=== PATIENT | female | born 1955 | race Caucasian/White ===

== ENCOUNTER 2020-05-21 10:21 | Outpatient (REF) | payer OTHER, SELFPAY ==
--- NOTE | 2020-05-21 10:25 | MM_ITS ---
EXAMINATION: MM SCREENING DIGITAL BREAST TOMOSYNTHESIS, BILATERAL CLINICAL INFORMATION: Screening. Asymptomatic. Prior history benign right breast excisional biopsy 2013 ([facility]). The lifetime risk of breast cancer based on the Tyrer-Cuzick Model is 5%. COMPARISON: Mammography: 05/16/2019, 05/10/2018, 03/12/2017 TECHNIQUE: Digital breast tomosynthesis is performed in both the craniocaudal and mediolateral oblique views along with computer-aided detection (CAD). Synthesized 2D images are generated from the tomosynthesis. FINDINGS: There are scattered areas of fibroglandular density (ACR BI-RADS breast composition Category b). Parenchymal pattern is similar to prior exam. There is chronic bilateral nipple retraction. There is no developing density or interval mass or architectural abnormality. Again, there are bilateral benign round and ductal secretory calcifications central and anterior breasts. No significant changes. MM/MM tomosynthesis screening BI IMPRESSION: No significant changes from prior studies. ASSESSMENT: BI-RADS 2: Benign RECOMMENDATION: Routine annual mammography screening. This patient's information was entered into a reminder system with a target due date for their next mammogram.
== END 2020-05-21 10:22 | disposition home or self-care (01) ==
LOC: HO.MAMMO 10:21
PROVIDERS: PCP Pediatrics; Visit Provider Pediatrics
DX: Z12.31 Encounter for screening mammogram for malignant neoplasm of breast (principal)
CPT/HCPCS: 77063; 77067

== ENCOUNTER 2021-06-26 07:49 | Outpatient (REF) | payer MEDICARE, SELFPAY ==
--- NOTE | ~2021-06-26 | MM_ITS ---
EXAMINATION: MM SCREENING DIGITAL BREAST TOMOSYNTHESIS, BILATERAL CLINICAL INFORMATION: Screening. Asymptomatic. Prior benign right excisional biopsy 2012 ([facility]). The lifetime risk of breast cancer based on the Tyrer-Cuzick Model is 4%. COMPARISON: Mammography: 05/21/2020, 05/16/2019, 05/10/2018 TECHNIQUE: Digital breast tomosynthesis is performed in both the craniocaudal and mediolateral oblique views along with computer-aided detection (CAD). Synthesized 2D images are generated from the tomosynthesis. FINDINGS: There are scattered areas of fibroglandular density (ACR BI-RADS breast composition Category b). Parenchymal pattern is similar to prior studies. There is chronic bilateral nipple retraction. Old scarring is again seen upper outer right breast consistent with the outside excisional biopsy. Neither breast shows interval mass or architectural changes or developing density. There are scattered bilateral round and rim and ductal secretory calcifications again noted. No significant changes. MM/MM tomosynthesis screening BI IMPRESSION: No significant changes from prior studies. ASSESSMENT: BI-RADS 2: Benign RECOMMENDATION: Routine annual mammography screening. This patient's information was entered into a reminder system with a target due date for their next mammogram.
== END 2021-06-26 07:50 | disposition home or self-care (01) ==
LOC: HO.MAMMO 07:49
PROVIDERS: PCP Pediatrics; Visit Provider Pediatrics
DX: Z12.31 Encounter for screening mammogram for malignant neoplasm of breast (principal)
CPT/HCPCS: 77063; 77067

== ENCOUNTER 2022-07-02 07:39 | Outpatient (REF) | payer MEDICARE, SELFPAY ==
--- NOTE | ~2022-07-02 | MM_ITS ---
EXAMINATION: MM SCREENING DIGITAL BREAST TOMOSYNTHESIS, BILATERAL CLINICAL INFORMATION: Screening. Asymptomatic. Prior benign right excisional biopsy, 2012 ([facility]). The lifetime risk of breast cancer based on the Tyrer-Cuzick Model is 4%. COMPARISON: Mammography: 06/26/2021, 05/21/2020, 05/16/2019 TECHNIQUE: Digital breast tomosynthesis is performed in both the craniocaudal and mediolateral oblique views along with computer-aided detection (CAD). Synthesized 2D images are generated from the tomosynthesis. Additional right MLO view is provided. FINDINGS: There are scattered areas of fibroglandular density (ACR BI-RADS breast composition Category b). Parenchymal pattern is similar to prior studies and there is no significant mass or developing density or interval architectural abnormality. Chronic scarring right breast is consistent with the outside excisional biopsy. There are some bilateral benign round and ductal secretory calcifications again seen. Mild bilateral nipple retraction is a chronic finding. No significant changes. MM/MM tomosynthesis screening BI IMPRESSION: No significant changes from prior studies. ASSESSMENT: BI-RADS 2: Benign RECOMMENDATION: Routine annual mammography screening. This patient's information was entered into a reminder system with a target due date for their next mammogram.
== END 2022-07-02 07:40 | disposition home or self-care (01) ==
LOC: HO.MAMMO 07:39
PROVIDERS: PCP Family Medicine; Visit Provider Pediatrics
DX: Z12.31 Encounter for screening mammogram for malignant neoplasm of breast (principal)
CPT/HCPCS: 77063; 77067

== ENCOUNTER 2023-07-07 07:25 | Outpatient (REF) | payer MEDICARE, SELFPAY ==
--- NOTE | ~2023-07-07 | MM_ITS ---
EXAMINATION: MM SCREENING DIGITAL BREAST TOMOSYNTHESIS, BILATERAL CLINICAL INFORMATION: Screening. Asymptomatic. COMPARISON: Mammography: This study is compared with prior exams dating back to 2018. TECHNIQUE: Digital breast tomosynthesis is performed in both the craniocaudal and mediolateral oblique views along with computer-aided detection (CAD). Synthesized 2D images are generated from the tomosynthesis. FINDINGS: There are scattered areas of fibroglandular density (ACR BI-RADS breast composition Category b). There are no significant masses, abnormal calcifications, or other abnormalities. There are bilateral, benign secretory calcifications. There are bilateral periareolar architectural changes from prior bilateral benign excisions. MM/MM tomosynthesis screening BI IMPRESSION: No mammographic evidence of malignancy. ASSESSMENT: BI-RADS BI-RADS 2 - Benign Findings RECOMMENDATION: Routine annual mammography screening. 1 year F/U This examination should not preclude the clinical evaluation of a suspicious palpable abnormality. This patient's information was entered into a reminder system with a target due date for their next mammogram.
== END 2023-07-07 07:26 | disposition home or self-care (01) ==
LOC: HO.MAMMO 07:25
PROVIDERS: PCP Family Medicine; Visit Provider Family Medicine
DX: Z12.31 Encounter for screening mammogram for malignant neoplasm of breast (principal)
CPT/HCPCS: 77063; 77067

== ENCOUNTER → 2023-07-07 07:45 | Outpatient (BNV) | payer MEDICARE, SELFPAY | PROVIDERS: PCP Family Medicine; Visit Provider Radiology Diagnostic Radiology | DX: Z12.31 Encounter for screening mammogram for malignant neoplasm of breast (principal) | CPT/HCPCS: 77063; 77067 ==

== ENCOUNTER 2023-11-17 14:09 | Outpatient (AMB) | payer MEDICARE, SELFPAY ==
--- NOTE | 2023-11-17 14:16 | A.OFFPC_ITS ---
Vital Signs 11/17/23 14:20 Height 5 ft 3 in Weight 146 lb 2 oz BMI 25.9 BP 100/62 Blood Pressure Location Rt brachial Position Sitting Respiration 15 Pulse 75 Pulse Source Pulse Oximeter Temp 97 F Temp Source Temporal Artery Scan Pulse Oximetry (%) 96 Oxygen Delivery Method Room Air Intake Visit Reasons: Establish Care new to practice Intake Note: Patient states that shes been experiencing fatigue and has been more tired than usual. 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 Accompanied by: Self / Same As Patient Allergies No Known Allergies Allergy (Verified 11/17/23 14:23) Tobacco use date assessed: 11/17/23 Fall risk assessment: 1 Fall in past year Last assessed Fall Risk: 11/17/23 Dental Screening Dental Screen Date: 11/17/23 Did you have a dental visit in the last 12 months?: Yes Did you have a dental problem in the last 6 months where you did not have access to dental care?: No Was dental information given to patient?: Patient has dentist HPI HPI Comments History of Present Illness Details The patient is a 68 year old female with a past medical history of hyperlipidemia, depression presenting to establish care. Transfer from [facility] BH: Has been on paxil for years. Finds herself more depressed more fatigued. Lack of motivation. no fevers, night sweats CV: on lipitor ROS CONSTITUTIONAL: Denies weight loss, fever and chills. HEENT: Denies changes in vision and hearing. RESPIRATORY: Denies SOB and cough. CV: Denies palpitations and CP GI: Denies abdominal pain, nausea, vomiting and diarrhea. : Denies dysuria and urinary frequency. MSK: Denies new myalgia and joint pain. SKIN: Denies rash and pruritus. NEUROLOGICAL: Denies headache PSYCHIATRIC: see HPI PHYSICAL EXAM: GENERAL: Alert and oriented x 3. NAD EYES: EOMI. Anicteric. HENT: Moist mucous membranes. No scleral icterus. No cervical lymphadenopathy. LUNGS: Clear to auscultation bilaterally. CARDIOVASCULAR: Regular rate and rhythm. No murmur. No JVD. ABDOMEN: Soft, non-tender +bs EXTREMITIES: No edema. Non-tender. SKIN: No rashes or lesions. Warm. NEUROLOGIC: No focal neurological deficits. CN II-XII grossly intact PSYCHIATRIC: Cooperative. Appropriate mood and affect [facility] Medical History (Updated 11/22/23 @ 10:47 by Nanci Kuo MD) Anxiety and depression Arthritis High cholesterol Surgical History (Updated 11/17/23 @ 14:28 by TERESA Duran) History of Matos colposuspension Status post excision of acoustic neuroma Family History (Updated 11/17/23 @ 14:31 by TERESA Duran) Father Cardiovascular disease Maternal Grandmother Diabetes Family/Other No problems noted. Social History Housing: House Patient Tobacco Use Status: Former Tobacco user e-Cigarette/Vaping Use: Never Used service: No Current occupational status: retired Cognitive needs: No Hearing needs: Yes Vision needs: No Questionnaire PHQ-9 Over the last 2 weeks, how often have you been bothered by any of the following problems? 1. Little interest or pleasure in doing things: nearly every day 2. Feeling down, depressed, or hopeless: several days 3. Trouble falling or staying asleep, or sleeping too much: several days 4. Feeling tired or having little energy: several days 5. Poor appetite or overeating: not at all 6. Feeling bad about yourself - or that you are a failure or have let yourself or your family down: more than half the days 7. Trouble concentrating on things, such as reading the newspaper or watching television: not at all 8. Moving or speaking so slowly that other people could have noticed. Or the opposite - being so fidgety or restless that you have been moving around a lot more than usual: not at all 9. Thoughts that you would be better off or of hurting yourself in some way: not at all Total score: 8 Depression Screening Interpretation: Positive Depression Screening Done: Yes 37151 - PHQ-9 Billing: Yes Source: Developed by Drs. Raheel Chang, Myriam Washington, Julian Traore and colleagues, with an educational alaina from [employer]. Thrive Questionnaire Date Thrive assessed: 11/17/23 What is your living situation today?: I have a steady place to live Within the past 12 months, did the food you bought not last and you didn't have the money to get more?: Never true Do you have trouble paying for medicines?: No Do you have trouble getting transportation to medical appointments?: No Do you have trouble paying your heating and electricity bill?: No Do you have trouble taking care of your child, family member or friend?: No Do you have trouble with day-to-day activities such as bathing, preparing meals, shopping, managing finances, etc.?: No Are you currently unemployed and looking for a job?: No Are you interested in more education?: No Please select the resources that you would like help with: None THRIVE Score: 0 REE-7 AMB Questionnaire REE-7 Date REE - 7 assessed: 11/17/23 Feeling nervous, anxious, or on edge: 0 = Not at all Not being able to stop or control worryin = Not at all Worrying too much about different things: 1 = Several days Trouble relaxin = Not at all Being so restless that it is hard to sit still: 0 = Not at all Becoming easily annoyed or irritable: 0 = Not at all Feeling afraid as if something awful might happen: 0 = Not at all Total REE-7 score (0-4 normal; 5-9 mild; 10-14 moderate; 15-21 severe): 1 Source: Developed by Drs. Raheel Chang, Myriam Washington, Julian Traore and colleagues, with an educational alaina from [employer]. REE-7 Assessment Billing REE-7 Assessment Tool: REE-7 Assessment 86071 Physical exam (Primary Care) Vital Signs: Last Vital Signs Temp 97 F 11/17/23 14:20 Pulse 75 11/17/23 14:20 Resp 15 11/17/23 14:20 BP 100/62 11/17/23 14:20 Pulse Ox 96 11/17/23 14:20 Oxygen Delivery Method Room Air 11/17/23 14:20 BMI result Body Mass Index 25.9 Tobacco/Smoking Status: Tobacco use Status Tobacco use date assessed 11/17/23 11/17/23 14:32 Patient Tobacco Use Status Former Tobacco user 11/17/23 14:32 e-Cigarette/Vaping Use Never Used 11/17/23 14:32 PHQ-9: PHQ-9 Score PHQ-9: Total score 8 11/22/23 10:47 Depression Screening Interpretation: Positive Thrive Assessment: Date of Thrive Assessment Date Thrive assessed 11/17/23 11/17/23 14:41 Assessment and Plan Assessment & Plan (1) High cholesterol: Code(s): E78.00 - Pure hypercholesterolemia, unspecified Plan: continue statin therapy (2) Lack of motivation: Code(s): Z91.89 - Other specified personal risk factors, not elsewhere classified Plan: labs ordered (3) MDD (major depressive disorder), recurrent, in partial remission: Code(s): F33.41 - Major depressive disorder, recurrent, in partial remission Plan: Start wellbutrin. continue paxil (4) Fatigue: Code(s): R53.83 - Other fatigue Qualifiers: Fatigue type: chronic, unspecified Qualified Code(s): R53.82 - Chronic fatigue, unspecified Orders: Orders Vitamin B12 and Folate 11/17/23 E78.00 - Pure hypercholesterolemia, unsp ecified, F33.41 - Major depressive disorder, recurrent, in partial remission, R53.83 - Other fatigue, Z91.89 - Other specified personal risk factors, not elsewhere classified Complete Blood Count Auto Diff 11/17/23 E78.00 - Pure hypercholesterolemia, unspecified, F33.41 - Major depressive disorder, recurrent, in partial remission, R53.83 - Other fatigue, Z91.89 - Other specified personal risk factors, not elsewhere classified IRON PROFILE 11/17/23 E78.00 - Pure hypercholesterolemia, unspecified, F33.41 - Major depressive disorder, recurrent, in partial remission, R53.83 - Other fatigue, Z91.89 - Other specified personal risk factors, not elsewhere classified Lipid Panel 11/17/23 E78.00 - Pure hypercholesterolemia, unspecified TSH reflex Free T4 11/17/23 E78.00 - Pure hypercholesterolemia, unspecified, F33.41 - Major depressive disorder, recurrent, in partial remission, R53.83 - O ther fatigue, Z91.89 - Other specified personal risk factors, not elsewhere classified Lyme IgG/IgM w/reflex to WB 11/17/23 E78.00 - Pure hypercholesterolemia, unspecified, F33.41 - Major depressive disorder, recurrent, in partial remission, R53.83 - Other fatigue, Z91.89 - Other specified personal risk factors, not elsewhere classified Medications: New bupropion HCl SR (Wellbutrin SR) 100 mg PO DAILY 90 tabs 3RF Coding Level of Care Code New Pt Level 4 (30845) Complex EM visit Add On G2211 Diagnoses High cholesterol E78.00 Lack of motivation Z91.89 MDD (major depressive disorder), recurrent, in partial remission F33.41 Chronic fatigue R53.82 Fatigue type: chronic, unspecified Additional Codes REE-7 Assessment Billing - REE-7 Assessment Tool: REE-7 Assessment 34943 ([id number])
[2023-11-17 14:20] VITALS: BP 100/62; PULSE 75; RESP 15; TEMP 36.1; O2SAT 96; BMI 25.9
== END 2023-11-17 15:00 | disposition home or self-care (01) ==
PROVIDERS: PCP Family Medicine; Visit Provider Internal Medicine
DX: E78.00 Pure hypercholesterolemia, unspecified (principal); Z91.89 Other specified personal risk factors, not elsewhere classified; F33.41 Major depressive disorder, recurrent, in partial remission; R53.82 Chronic fatigue, unspecified
CPT/HCPCS: 96127; 99204; G2211

== ENCOUNTER 2023-12-02 11:13 | Outpatient (AMB) | payer MEDICARE, SELFPAY ==
--- NOTE | 2023-12-02 11:16 | AM.OFFWIN_ITS ---
Intake Vital Signs 12/02/23 11:20 Weight 141 lb 4 oz BP 117/66 Blood Pressure Location Rt brachial Position Sitting Respiration 16 Pulse 93 Pulse Source Pulse Oximeter Temp 98.2 F Temp Source Temporal Artery Scan Pulse Oximetry (%) 95 Oxygen Delivery Method Room Air Intake Visit Reasons: Low grade fever Intake Note: patient here c/o low grade fever 100.5 since Thursday night, no appetite, headache. 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 Reports she was in her normal state of health until Thursday when she felt hot and feverish. She did not measure her temperature at that time. She also developed a headache and elevated heart rate. She has been taking Tylenol every 6 hours with positive relief of her symptoms. The last dose was at midnight last night. She is afebrile at the time of visit. denies recent travel,sick exposures , runny nose, ear pain, sore throat, cough Awake alert NAD Sclera and conjunctiva clear bilat Nares patent, turbinates within normal limits, no sinus tenderness with palpation bilat TM intact and clear bilat MMM, pharynx WNL RRR LS CTAB Plan Supportive care only. Continue to hydrate and rest. [id number] analgesics and fever reducers. If symptoms worsen or last beyond 14 days, educated to return to the office for re-evaluation. [facility] Medical History (Updated 12/02/23 @ 11:54 by Katerina Marinelli [facility]) Anxiety and depression Arthritis High cholesterol Surgical History (Updated 11/17/23 @ 14:28 by TERESA Duran) History of Matos colposuspension Status post excision of acoustic neuroma Family History (Updated 11/17/23 @ 14:31 by TERESA Duran) Father Cardiovascular disease Maternal Grandmother Diabetes Family/Other No problems noted. Social History Housing: House Patient Tobacco Use Status: Former Tobacco user e-Cigarette/Vaping Use: Never Used Patient : No service: No Current occupational status: retired Cognitive needs: No Hearing needs: Yes Vision needs: No Physical Exam Vital Signs: Last Vital Signs Temp 98.2 F 12/02/23 11:20 Pulse 93 12/02/23 11:20 Resp 16 12/02/23 11:20 BP 117/66 12/02/23 11:20 Pulse Ox 95 12/02/23 11:20 Oxygen Delivery Method Room Air 12/02/23 11:20 Assessment & Plan Assessment & Plan (1) Viral URI: Code(s): J06.9 - Acute upper respiratory infection, unspecified Plan: . Plan . Coding Level of Care Code Est Pt Level 3 (35400) Diagnoses Viral URI J06.9
[2023-12-02 11:20] VITALS: BP 117/66; PULSE 93; RESP 16; TEMP 36.8; O2SAT 95
== END 2023-12-02 12:14 | disposition home or self-care (01) ==
PROVIDERS: PCP Family Medicine; Visit Provider Nurse Practitioner Family
DX: J06.9 Acute upper respiratory infection, unspecified (principal)
CPT/HCPCS: 99213

== ENCOUNTER 2023-12-02 12:08 | Outpatient (REF) | payer MEDICARE, SELFPAY ==
[2023-12-02 13:59] LABS: MANUAL DIFF FLAG NO
[2023-12-02 14:09] LABS: Basophils Percent Auto 0.4 % (0-2); Eosinophils Absolute Auto 0.1 X10*3/uL (0.0-0.4); Eosinophils Percent Auto 0.7 % (0-4); Hematocrit 38.6 % (37.0-47.0); Hemoglobin 13.3 g/dl (12.0-16.0); Imm Gran Abs Auto 0.05 X10*3/uL (0.00-0.03); Imm Gran Pct Auto 0.5 % (0.0-0.4); Lymphocytes Absolute Auto 1.4 X10*3/uL (1.2-4.9); Lymphocytes Percent Auto 14.4 % (20-40); Mean Corpuscular HGB Conc 34.5 g/dl (31.0-35.0); Mean Corpuscular Hemoglobin 31.7 pg (27.0-33.0); Mean Corpuscular Volume 91.9 fL (80.0-98.0); Mean Platelet Volume 8.5 fL (9.4-12.3); Monocytes Absolute Auto 1.1 X10*3/uL (0.1-1.2); Monocytes Percent Auto 12.1 % (2-11); Neutrophils Absolute Auto 6.7 x10*3/uL (2.0-8.3); Neutrophils Percent Auto 71.9 % (45-73); Platelet Count 213 X10*3/uL (160-400); Red Cell Distribution Width 12.1 % (11.0-16.0); White Blood Count 9.4 X10*3/uL (4.8-10.8)
[2023-12-02 14:40] LABS: Cholesterol 239 mg/dL (<200); HDL Cholesterol 58 mg/dL (>40); Iron 15 mcg/dL (30-160); LDL Cholesterol Calculated 162 mg/dL (<100); Percent Iron Saturation 8 % (15-50); Total Iron Binding Capacity 187 mcg/dL (228-428); Triglycerides 98 mg/dL (<150); Unsaturated Iron Binding 172 ug/dL
[2023-12-02 14:44] LABS: TSH reflex Free T4 1.01 uIU/mL (0.32-4.0)
[2023-12-02 14:55] LABS: Folate 11.9 ng/mL (> or = 4.0); Vitamin B12 703 pg/mL (200-900)
[2023-12-04 21:04] LABS: Lyme Abs Screen <0.90 index
== END 2023-12-02 12:09 | disposition home or self-care (01) ==
LOC: HO.WFDLDS 12:08
PROVIDERS: Visit Provider Internal Medicine
DX: E78.00 Pure hypercholesterolemia, unspecified (principal); F33.41 Major depressive disorder, recurrent, in partial remission; Z91.89 Other specified personal risk factors, not elsewhere classified
CPT/HCPCS: 36415; 80061; 82607; 82746; 83540; 84443; 85025; 86617; 86618

== ENCOUNTER 2024-05-27 08:27 | Outpatient (AMB) | payer MEDICARE, SELFPAY ==
--- NOTE | 2024-05-27 08:30 | A.OFFPC_ITS ---
Vital Signs 05/27/24 08:33 Height 5 ft 3 in Weight 143 lb 8 oz BMI 25.4 BP 116/68 Blood Pressure Location Lt brachial Position Sitting Pulse 62 Pulse Source Pulse Oximeter Pulse Oximetry (%) 99 Oxygen Delivery Method Room Air Intake Visit Reasons: Annual PE - see comments Intake Note: Physical Automotive Specialty Technician Required: No Allergies No Known Allergies Allergy (Verified 05/27/24 08:36) Tobacco use date assessed: 05/27/24 Dental Screening Dental Screen Date: 11/17/23 HPI HPI Comments History of Present Illness Details The patient is a 68 year old female with a past medical history of hyperlipidemia, depression presenting for annual exam BH: Stable on paxil. She continues to have low motivation. Finds herself more depressed more fatigued. Lack of motivation. no fevers, night sweats. Tried wellbutrin. Tolerated but was not helpful. CV: Prescribed lipitor-currently not taking Preventive: Mammo schedule for July 15 Colonoscopy is due 08/2023-referral is in place. Last 08/2018 She received the flu vaccination ROS CONSTITUTIONAL: Denies weight loss, fever and chills. HEENT: Denies changes in vision and hearing. RESPIRATORY: Denies SOB and cough. CV: Denies palpitations and CP GI: Denies abdominal pain, nausea, vomiting and diarrhea. : Denies dysuria and urinary frequency. MSK: Denies new myalgia and joint pain. SKIN: Denies rash and pruritus. NEUROLOGICAL: Denies headache PSYCHIATRIC: see HPI PHYSICAL EXAM: GENERAL: Alert and oriented x 3. NAD EYES: EOMI. Anicteric. HENT: Moist mucous membranes. No scleral icterus. No cervical lymphadenopathy. LUNGS: Clear to auscultation bilaterally. CARDIOVASCULAR: Regular rate and rhythm. No murmur. No JVD. ABDOMEN: Soft, non-tender +bs EXTREMITIES: No edema. Non-tender. SKIN: No rashes or lesions. Warm. NEUROLOGIC: No focal neurological deficits. CN II-XII grossly intact PSYCHIATRIC: Cooperative. Appropriate mood and affect [facility] Medical History Anxiety and depression Arthritis High cholesterol Surgical History History of Matos colposuspension Status post excision of acoustic neuroma Family History Father Cardiovascular disease Maternal Grandmother Diabetes Family/Other No problems noted. Social History Housing: House Patient Tobacco Use Status: Former Tobacco user e-Cigarette/Vaping Use: Never Used service: No Current occupational status: retired Cognitive needs: No Hearing needs: Yes Vision needs: No Questionnaire PHQ-9 Over the last 2 weeks, how often have you been bothered by any of the following problems? 1. Little interest or pleasure in doing things: more than half the days 2. Feeling down, depressed, or hopeless: not at all 3. Trouble falling or staying asleep, or sleeping too much: more than half the days 4. Feeling tired or having little energy: several days 5. Poor appetite or overeating: not at all 6. Feeling bad about yourself - or that you are a failure or have let yourself or your family down: not at all 7. Trouble concentrating on things, such as reading the newspaper or watching television: not at all 8. Moving or speaking so slowly that other people could have noticed. Or the opposite - being so fidgety or restless that you have been moving around a lot more than usual: not at all 9. Thoughts that you would be better off or of hurting yourself in some way: not at all Total score: 5 Depression Screening Interpretation: Positive Depression Screening Follow-up: Existing condition Depression Screening Done: Yes 09949 - PHQ-9 Billing: Yes Source: Developed by Drs. Raheel Chang, Myriam Washington, Julian Traore and colleagues, with an educational alaina from [employer]. Thrive Questionnaire Date Thrive assessed: 05/26/24 I am a: Patient What is your living situation today?: I have a steady place to live Within the past 12 months, did the food you bought not last and you didn't have the money to get more?: Never true Within the past 12 months, did you worry whether your food would run out before you got money to buy more?: Never true Do you have trouble paying for medicines?: No Do you have trouble getting transportation to medical appointments?: No Do you have trouble paying your heating and electricity bill?: No Do you have trouble taking care of your child, family member or friend?: No Do you have trouble with day-to-day activities such as bathing, preparing meals, shopping, managing finances, etc.?: No Are you currently unemployed and looking for a job?: No Are you interested in more education?: No Please select the resources that you would like help with: None Currently or been in a relationship where the following occur: I choose not to answer THRIVE Score: 0 AUDIT C Alcohol Use Questionnaire (AUDIT-C) 2. How many drinks containing alcohol do you have on a typical day when you are drinking?: 1 or 2 3. How often do you have six or more drinks on one occasion?: Never Total Score: 0 REE-7 AMB Questionnaire REE-7 Date REE - 7 assessed: 05/27/24 Feeling nervous, anxious, or on edge: 0 = Not at all Not being able to stop or control worryin = Not at all Worrying too much about different things: 1 = Several days Trouble relaxin = Not at all Being so restless that it is hard to sit still: 0 = Not at all Becoming easily annoyed or irritable: 0 = Not at all Feeling afraid as if something awful might happen: 0 = Not at all Total REE-7 score (0-4 normal; 5-9 mild; 10-14 moderate; 15-21 severe): 1 Source: Developed by Drs. Raheel Chang, Myriam Washington, Julian Traore and colleagues, with an educational alaina from [employer]. REE-7 Assessment Billing REE-7 Assessment Tool: REE-7 Assessment 89936 Physical exam (Primary Care) Vital Signs: Last Vital Signs Pulse 62 05/27/24 08:33 BP 116/68 05/27/24 08:33 Pulse Ox 99 05/27/24 08:33 Oxygen Delivery Method Room Air 05/27/24 08:33 BMI result Body Mass Index 25.4 Tobacco/Smoking Status: Tobacco use Status Tobacco use date assessed 11/17/23 12/15/23 09:22 Patient Tobacco Use Status Former Tobacco user 12/15/23 09:22 e-Cigarette/Vaping Use Never Used 12/15/23 09:22 Depression Screening Interpretation: Positive Depression Screening Follow-up: Existing condition Thrive Assessment: Date of Thrive Assessment Date Thrive assessed 05/26/24 05/25/24 19:14 Currently or been in a relationship where the following occur: I choose not to answer Coding Level of Care Code Est Pt Prev Care >65y(82943) Diagnoses Encounter for physical examination Z00.00 MDD (major depressive disorder), recurrent, in partial remission F33.41 Additional Codes REE-7 Assessment Billing - REE-7 Assessment Tool: REE-7 Assessment 70045 ([id number]) PHQ-9 - 88956 - PHQ-9 Billing: Yes ([id number]) Assessment & Plan Assessment & Plan (1) Encounter for physical examination: Code(s): Z00.00 - Encounter for general adult medical examination without abnormal findings Plan: Preventive measures for age discussed She is overdue for colonoscopy. Referral was placed. This was reordered today (2) MDD (major depressive disorder), recurrent, in partial remission: Code(s): F33.41 - Major depressive disorder, recurrent, in partial remission Category: Medical Plan: Stable on current medications She has low iron-she was placed on flintstones with iron Orders: Orders Lipid Panel Today E78.00 - Pure hypercholesterolemia, unspecified, F33.41 - Major depressive disorder, recurrent, in partial remission Complete Blood Count Auto Diff Today E78.00 - Pure hypercholesterolemia, unspecified, F33.41 - Major depressive disorder, recurrent, in partial remission IRON PROFILE Today E78.00 - Pure hypercholesterolemia, unspecified, F33.41 - Major depressive disorder, recurrent, in partial remission Referrals Gastroenterology Referral 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
[2024-05-27 08:33] VITALS: BP 116/68; PULSE 62; O2SAT 99; BMI 25.4
== END 2024-05-27 09:00 | disposition home or self-care (01) ==
PROVIDERS: PCP Internal Medicine; Visit Provider Internal Medicine
DX: Z00.00 Encounter for general adult medical examination without abnormal findings (principal); F33.41 Major depressive disorder, recurrent, in partial remission

== ENCOUNTER 2024-05-27 09:12 | Outpatient (REF) | payer MEDICARE, SELFPAY ==
[2024-05-27 11:34] LABS: MANUAL DIFF FLAG NO
[2024-05-27 11:46] LABS: Basophils Absolute Auto 0.1 X10*3/uL (0.0-0.2); Basophils Percent Auto 0.9 % (0-2); Eosinophils Absolute Auto 0.1 X10*3/uL (0.0-0.4); Eosinophils Percent Auto 1.7 % (0-4); Hemoglobin 13.1 g/dl (12.0-16.0); Imm Gran Abs Auto 0.02 X10*3/uL (0.00-0.03); Imm Gran Pct Auto 0.3 % (0.0-0.4); Lymphocytes Absolute Auto 2.6 X10*3/uL (1.2-4.9); Lymphocytes Percent Auto 44.1 % (20-40); Mean Corpuscular HGB Conc 34.5 g/dl (31.0-35.0); Mean Corpuscular Hemoglobin 31.8 pg (27.0-33.0); Mean Corpuscular Volume 92.2 fL (80.0-98.0); Mean Platelet Volume 8.5 fL (9.4-12.3); Monocytes Absolute Auto 0.6 X10*3/uL (0.1-1.2); Neutrophils Absolute Auto 2.5 x10*3/uL (2.0-8.3); Platelet Count 266 X10*3/uL (160-400); Red Blood Count 4.12 X10*6/uL (4.20-5.50); Red Cell Distribution Width 12.2 % (11.0-16.0); White Blood Count 5.8 X10*3/uL (4.8-10.8)
[2024-05-27 11:57] LABS: Cholesterol 288 mg/dL (<200); HDL Cholesterol 69 mg/dL (>40); Iron 82 mcg/dL (30-160); LDL Cholesterol Calculated 205 mg/dL (<100); Percent Iron Saturation 33 % (15-50); Total Iron Binding Capacity 249 mcg/dL (228-428); Triglycerides 70 mg/dL (<150); Unsaturated Iron Binding 167 ug/dL
== END 2024-05-27 09:13 | disposition home or self-care (01) ==
LOC: HO.WFDLDS 09:12
PROVIDERS: Visit Provider Internal Medicine
DX: Z00.00 Encounter for general adult medical examination without abnormal findings (principal); E78.00 Pure hypercholesterolemia, unspecified; F33.41 Major depressive disorder, recurrent, in partial remission; Q43.8 Other specified congenital malformations of intestine
CPT/HCPCS: 36415; 80061; 83540; 85025; 96127; 99397

== ENCOUNTER 2024-07-15 07:19 | Outpatient (REF) | payer MEDICARE, SELFPAY ==
--- NOTE | ~2024-07-15 | MM_ITS ---
EXAMINATION: MM SCREENING DIGITAL BREAST TOMOSYNTHESIS, BILATERAL CLINICAL INFORMATION: Screening. Asymptomatic. COMPARISON: Mammography: Comparison is made with available priors TECHNIQUE: Digital breast mammography with tomosynthesis is performed in both the craniocaudal and mediolateral oblique views along with computer-aided detection (CAD). FINDINGS: There are scattered areas of fibroglandular density (ACR BI-RADS breast composition Category b). Bilateral excisional biopsy changes are stable. There are no significant masses, abnormal calcifications, or other abnormalities. MM/MM tomosynthesis screening BI IMPRESSION: No mammographic evidence of malignancy. ASSESSMENT: BI-RADS BI-RADS 2 - Benign Findings RECOMMENDATION: Routine annual mammography screening. 1 year F/U This examination should not preclude the clinical evaluation of a suspicious palpable abnormality. This patient's information was entered into a reminder system with a target due date for their next mammogram. Electronically signed by: Jaida Bear DO 07/18/2024 03:22 PM CHERIE
--- OUTSIDE RECORDS SUMMARY | 2024-07-15 07:22 | XMS_ITS | Patient Health Record ---
Author Organization [facility] Address [address] [place] [address] Care Team Providers Care Composite Laminator Name Role Phone Nanci Kuo M.D. Primary Care Provider Juan Antonio Stewart Jr Unavailable [phone] REASON FOR REFERRAL No Information SOCIAL HISTORY Sex Assigned At : Social History Observation Description Sex Assigned At Unknown PLAN OF TREATMENT Next Appt Details Provider Name:Juan Antonio marques Jr, 09/21/2024 11:00:00 AM, [address], [address], [place], [address], Insurance Providers Payer Name Payer Address Payer Phone Subscriber Number Group Number Insured Name Patient Relationship to Insured Coverage Start Date Coverage End Date AARP Medicare Advantage Plan [address] [address] [place] [address] [id number] LAURYN PENDLETON Self - patient is the insured
== END 2024-07-15 07:20 | disposition home or self-care (01) ==
LOC: HO.MAMMO 07:19
PROVIDERS: PCP Internal Medicine; Visit Provider Internal Medicine
DX: Z12.31 Encounter for screening mammogram for malignant neoplasm of breast (principal)
CPT/HCPCS: 77063; 77067

== ENCOUNTER → 2024-07-15 07:30 | Outpatient (BNV) | payer MEDICARE, SELFPAY | PROVIDERS: PCP Internal Medicine; Visit Provider Internal Medicine | DX: Z12.31 Encounter for screening mammogram for malignant neoplasm of breast (principal) | CPT/HCPCS: 77063; 77067 ==

== ENCOUNTER 2024-10-18 08:18 | Day surgery (SDC) | payer MEDICARE, SELFPAY ==
--- OUTSIDE RECORDS SUMMARY | 2024-09-23 08:17 | XMS_ITS | Patient Health Record ---
Author Organization [facility] Address [address] [place] [address] Care Team Providers Care Quality Improvement Manager Name Role Phone Nanci Kuo M.D. Primary Care Provider Unavail diane Figueroa Jr Juan Antonio Unavailable Allergies No Known Allergies Reason For Referral No Information Medications Medication SIG (Take, Route, Frequency, Duration) Notes Start Date End Date Status Zinc 30 MG 1 tablet Orally Once a day for 30 day(s) 09/21/2024 Active Ashwagandha Gummies 500 MG as directed Orally 11/2024 Active Lyxapu-Rpijgaytx-JGO Complex - as directed Orally 09/21/2024 Active Co Q 10 10 MG as directed Orally 09/21/2024 Active Atorvastatin Calcium 40 MG 1 tablet Oral ly Once a day for 30 day(s) 09/21/2024 Active Magnesium Glycinate 100 MG as directed Orally 11/2024 Active Paxil 40 MG 1 tablet in the morn ing Orally Once a day for 30 day(s) 09/21/2024 Active Immunizations Vaccine Route Administration Date Status Comme nts Influenza Unknown 01/26/2024 Administered Social History Tobacco Use: Social History Observation Description Date Details (start date - stop date) Current Smoker NA - NA Tobacco Control (Standard) Question Answer Notes Tobacco use: Current smoker AUDIT-C (Standard) Question Answer Notes Did you have a drink contain ing alcohol in the past year? Yes How often did you have a dri nk containing alcohol in the past year? 2 to 3 times a week (3 points) How many drinks did you have on a typical day when you were drinking in the past year? 1 or 2 drinks (0 point) How often did you have six o r more drinks on one occasion in the past year? Never (0 point) Points 3 Interpretation Positive Problems Problem Type SNOMED Code ICD Code Onset Dates Problem Status W/U Status Risk Notes Problem Colon cancer screening (536822748) Colon cancer screening (Z12.11) Active confirmed Problem Pre-surgery evaluation (071970653) Other specified pre-operative examination (Z01.818) Active confirmed Vital Signs Temperature 98.0 degrees Fahrenheit 09/21/2024 Blood pressure diastolic 01 mm Hg 09/21/2024 Height 63 in 09/21/2024 Blood pressure systolic 001 mm Hg 09/21/2024 Weight 142 lbs 09/21/2024 BMI 25.15 kg/m2 09/21/2024 Encounters Encounter Location Date Provider [facility] [address] [place] [address] 09/21/2024 Juan Antonio Figueroa Jr Colon cancer screening Z12.11 and Other specified pre-operative examination Z01.818 Assessments Encounter Date Diagnosis (ICD Code) Assessment Notes Treatment Notes Treatment Clinical Notes Section Notes 09/21/2024 Colon cancer screening (ICD-10 - Z12.11) We discussed colonoscopy today. We discussed risks and benefits of the procedure today. She understands these and agrees to proceed. This will be scheduled at her convenience. 09/21/2024 Other specified pre-operative examination (ICD-10 - Z01.818) We discussed colonoscopy today. We discussed risks and benefits of the procedure today. She understands these and agrees to proceed. This will be scheduled at her convenience. Plan Of Treatment Future Test Test Name Order Date COLONOSCOPY 09/21/2024 Next Appt Details Provider Name:Juan Antonio marques Jr, 10/18/2024 11:50:00 AM, [address] , [place], [place], [id number], Insurance Providers Payer Name Payer Address Payer Phone Subscriber Number Group Number Insured Name Patient Relationship to Insured Coverage Start Date Coverage End Date AARP MEDI COMP (REFERR AL REQUIRE D) [address] [address] [place] [address] [id number] LAURYN PENDLETON Self - patient is the insured Medical (General) History Medical History History ICD Code Colonoscopy 09/03, no polyps, redundant and tortuous colon, 5-year follow-up due to limitations of the prep Arthritis anxiety/depression Hyperlipidemia Anemia Surgical History Surgery Date(Month/Year) acoustic neuroma removal bladder lift
--- OUTSIDE RECORDS SUMMARY | 2024-09-23 08:17 | XMS_ITS ---
Author Organization [facility] Address [address] [place] [address] Care Team Providers Care Float Phlebotomist Name Role Phone Nanci Kuo M.D. Primary Care Provider Lynda Figueroa JrJuan Antonio Allergies No Known Allergies REASON FOR VISIT Patient presents today for a COLON SCREENING Medications Medication SIG (Take, Route, Frequency, Duration) Notes Start Date End Date Status Zinc 30 MG 1 tablet Orally Once a day for 30 day(s) 09/21/2024 Active Xouclw-Wsrukgcdi-HRS Complex - as directed Orally 09/21/2024 Active Co Q 10 10 MG as directed Orally 09/21/2024 Active Atorvastatin Calcium 40 MG 1 tablet Oral ly Once a day for 30 day(s) 09/21/2024 Active Magnesium Glycinate 100 MG as directed Orally 11/2024 Active Ashwagandha Gummies 500 MG as directed Orally 11/2024 Active Paxil 40 MG 1 tablet in the morn ing Orally Once a day for 30 day(s) 09/21/2024 Active Social History Tobacco Use: Social History Observation [...] Status Risk Notes Problem Colon cancer screening (989296810) Colon cancer screening (Z12.11) Active confirmed Problem Pre-surgery evaluation (241702784) Other specified pre-operative examination (Z01.818) Active confirmed Vital Signs Temperature 98.0 degrees Fahrenheit 09/22/19 25 Blood pressure systolic 001 mm Hg 09/22/19 25 Blood pressure diastolic 01 mm Hg 025 Height 63 in 09/21/2024 Weight 142 lbs 09/21/2024 BMI 25.15 kg/m2 09/21/2024 Encounters Encounter Location Date Provider Diagnosis [facility] [address] [place] [address] 09/21/2024 Juan Antonio Figueroa Jr Colon cancer [...] Order Date COLONOSCOPY 09/21/2024 Next Appt Details Follow Up: 1 Year, Reason: Provider Name:Juan Antonio marques Jr, 10/18/2024 11:50:00 AM, [address] [place] [address] , [place], [place], [phone], Progress Notes * CATHERINE PENDLETON MDOB:[birth year] (68 yo F)Acc No.[id number]:09/21/2024 Progress Notes Patient:?CATHERINE PENDLETON Provider:?Juan Antonio Figueroa MD :1955???Age:68 Y???Sex:Female D ate:09/21/2024 Address: [address], [place], [place] Pcp:Nanci Kuo M.D. Subjective: * Chief Complaints: * ???1. Patient presents today for a COLON SCREENING. * HPI: ???New symptom(s):? Catherine is a pleasant 68-year-old woman seen today for her preoperative colonoscopy visit. She has no complaints of rectal bleeding or change in her bowel habits. Weight and appetite have been stable. Last colonoscopy in 2018 showed no polyps but was remarkable for redundant and tortuous colon, 5-year follow-up was recommended due to limitations of the prep. We reviewed this today. * ROS:?General/Constitutional:?Change in appetite?denies.?Fatigue?denies.?ENT:?Patient denies?difficulty swallowing.?Respiratory:?Patient denies?shortness of breath.?Cardiovascular:?Patient denies?chest pain.?Gastrointestinal:?Comments?See HPI for details.?Genitourinary:?Difficulty urinating?denies.?Incontinence?denies.?Musculoskeletal:?Patient denies?muscle aches.?Skin:?Patient denies?pruritis.?Neurologic:?Patient denies?low back pain.?Psychiatric:?Patient denies?mental or physical abuse.? * Medical History:?Colonoscopy 09/03, no polyps, redundant and tortuous colon, 5- year follow-up due to limitations of the prep, Arthritis, Anxiety/depression, Hyperlipidemia, Anemia. * Surgical History:?bladder li ft , acoustic neuroma removal . * Family History:?Father: dece ased.?Mother: , diagnosed with Heart disease.? No family history of colon cancer or liver cancer. * Social History:?Tobacco Use:?Tobacco Control (Standard)?Tobacco use:?Current smoker.?Drugs/Alcohol:?Drugs?Have you used drugs other than those for medical reasons in the past 12 months??Yes.?Miscellaneous:?Marital status: . Occupation: retired. ???Drug/Alcohol:?AUDIT-C (Standard)?Did you have a drink containing alcohol in the past year??Yes,?How often did you have a drink containing alcohol in the past year??2 to 3 times a week (3 points),?How many drinks did you have on a typical day when you were drinking in the past year??1 or 2 drinks (0 point),?How often did you have six or more drinks on one occasion in the past year??Never (0 point),?Points?3,?Interpretation?Positive.? * Medications:?Taking Paxil 40 MG Tablet 1 tablet in the morning Orally Once a day , Taking Atorvastatin Calcium 40 MG Tablet 1 tablet Orally Once a day , Taking Magnesium Glycinate 100 MG Capsule as directed Orally , Taking Shkyll-Wojbnamqe-YVR Complex - Tablet as directed Orally , Taking Co Q 10 10 MG Capsule as directed Orally , Taking Zinc 30 MG Tablet 1 tablet Orally Once a day , Taking Ashwagandha Gummies 500 MG Tablet Chewable as directed Orally * Allergies:?N.K.D.A. Objective: * Vitals:?Wt: 142 lbs, Ht: 63 in, BMI: 25.15 Index, BP: 001/01 mm Hg, Temp: 98.0, Ht-cm: 160.02, Wt-k.41. * Examination: ???General Examination: ?GENERAL APPEARANCE:?in no acute distress.?HEAD:?normocephalic.?EYES:?sclera non-icteric.?ORAL CAVITY:?mucosa moist.?NECK/THYROID:?no lymphadenopathy.?SKIN:?anicteric.?HEART:?S1, S2 normal, no murmurs.?LUNGS:?clear to auscultation bilaterally.?CHEST:?normal shape and expansion.?ABDOMEN:?soft, nontender, nondistended, bowel sounds present, no organomegaly .?EXTREMITIES:?no clubbing, cyanosis, or edema.?PSYCH:?cognitive function intact.? Assessment: * Assessment: 1.?Other specified pre-opera tive examination - Z01.818 (Primary)???2.?Colon cancer screening - Z12.11??? We discussed colonoscopy tod ay. We discussed risks and benefits of the procedure today. She understands these and agrees to proceed. This will be scheduled at her convenience. Plan: * Treatment: * Procedure Codes:?3017F COLOR ECTAL CA SCREEN DOC REV, G9902 Pt scrn tbco and id as user, G8785 BP SCR NOT PRFRM REC REASON NOS * Preventive Medicine:? ??Counseling:?Care goal follow-up plan:?Above Normal BMI Follow-up?Dietary management education, guidance, and counseling,?BMI management provided?Yes.?Smoking Patient counseled on the dangers of tobacco use and urged to quit.?09/21/2024,?Relapse prevention:?Discussed the importance of a supportive environment and helped identify them..? ??Urinary Incontinence:?Urinary Incontinence?Assessment:?Absent,?Plan of care documented:?No, reason not specified.? ??Screenings:?Fall Risk Screening?Fall Risk Assessment:?One fall with injury in the past year,?Screening:?One fall with injury in the past year,?Assessment:?Not performed, no reason specified,?Plan of Care:?Documented,?Type of fall plan of care:?Balance, strength and gait training or instruction provided.? * Follow Up:?1 Year * * Sign off status: Completed true * Provider:?Juan Antonio Figueroa MD Date:?0 09/21/2024 Generated for Peewee johnson/Rose/Tammy on:?09/23/2024 08:17 AM EDT History and Physical Notes * HPI (History of Present Illness) Category Sub-Category Detail Notes Category Not es New symptom(s) Catherine is a p leasant 68-year-old woman seen today for her preoperative colonoscopy visit. She has no complaints of rectal bleeding or change in her bowel habits. Weight and appetite have been stable. Last colonoscopy in 2019 showed no polyps but was remarkable for redundant and tortuous colon, 5-year follow-up was recommended due to limitations of the prep. We reviewed this today. Examination Category Sub-Category Detail Notes Category Not es General Examination GENERAL APPEARANCE: in no acute di stress HEAD: normocephalic EYES: sclera non-icteric NECK/THYROID: no lymphadenopathy HEART: S1, S2 normal, no mu rmurs CHEST: normal shape and exp ansion LUNGS: clear to auscultatio n bilaterally ABDOMEN: soft, nontender, non distended, bowel sounds present, no organomegaly SKIN: anicteric EXTREMITIES: no clubbing, cyanosi s, or edema PSYCH: cognitive function i ntact ORAL CAVITY: mucosa moist
[2024-10-14 14:27] VITALS: BMI 25.2
[2024-10-18 08:31] VITALS: BP 123/76; PULSE 67; RESP 18; TEMP 36.9; O2SAT 97; BMI 24.6
[2024-10-18] MEDS: Lactated Ringers 1,000 ML 100 ML IVCONT (08:49)
--- NOTE | 2024-10-18 09:16 | HO.ANESPROP2 ---
Documented by User: Mckayla Marie NP 10/17/24 12:16 HPI - Anesthesia Eval Consult details Narrative: 69yo F for Colonoscopy PMFSH Active Problems Active Problems: All Active Problems Elevated lymphocytes (Acute) Redundant colon (Acute) Screening for colon cancer (Acute) Viral URI (Acute) Fatigue (Acute) MDD (major depressive disorder), recurrent, in partial remission (Acute) Lack of motivation (Acute) High cholesterol (Acute) Past Medical History Medical History (Updated 10/14/24 @ 14:20 by Bernadette Bourgeois RN) Anemia Anxiety and depression Arthritis High cholesterol Family History Family History Father Cardiovascular disease Maternal Grandmother Diabetes Family/Other No problems noted. 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 If so, by whom?: No Are you DNR?: No Advance Directives: No Advance Directives Information Provided: Yes service: No Current occupational status: retired Cognitive needs: No Hearing needs: Yes Vision needs: No Meds Allergies Allergy/AdvReac Type Severity Reaction Status Date / Time No Known Allergies Allergy Verified 05/27/24 08:36 Home Medications ?Medication ?Instructions ?Recorded ?Confirmed ?Last Taken ?Type ashwagandha extract 500 mg capsule 500 mg PO DAILY 10/14/24 10/14/24 Unknown History atorvastatin 20 mg tablet 40 mg PO DAILY 10/14/24 10/14/24 Unknown History coQ10 (ubiquinol) 100 mg capsule 100 mg PO BID 10/14/24 10/14/24 Unknown History glucosamine 375 sw-wxruxfext-lut 1 tab PO DAILY 10/14/24 10/14/24 Unknown History no1 500 mg-C 15 mg-ayush 0.5 mg tablet (Bpdzjvsypqc-Qotphsnupfi-IHG Complex) magnesium glycinate 100 mg PO DAILY 10/14/24 10/14/24 Unknown History zinc acetate 25 mg (zinc) capsule 25 mg PO DAILY 10/14/24 10/14/24 Unknown History iron 10/18/24 10/16/24 History Exam Height,Weight and Vital Signs: Height 5 ft 3 in Weight 64.41 kg Assessment and Plan Assessment Anesthesia Assessment: Chart Reviewed Documented by User: Iqra Clifton DO 10/18/24 09:18 [facility] Past Medical History Medical History (Updated 10/14/24 @ 14:20 by Bernadette Bourgeois RN) Anemia Anxiety and depression Arthritis High cholesterol Family History Family History Father Cardiovascular disease Maternal Grandmother Diabetes Family/Other No problems noted. 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 If so, by whom?: No Are you DNR?: No Advance Directives: No Advance Directives Information Provided: Yes service: No Current occupational status: retired Cognitive needs: No Hearing needs: Yes Vision needs: No Meds Allergies Allergy/AdvReac Type Severity Reaction Status Date / Time No Known Allergies Allergy Verified 05/27/24 08:36 Home Medications ?Medication ?Instructions ?Recorded ?Confirmed ?Last Taken ?Type ashwagandha extract 500 mg capsule 500 mg PO DAILY 10/14/24 10/14/24 Unknown History atorvastatin 20 mg tablet 40 mg PO DAILY 10/14/24 10/14/24 Unknown History coQ10 (ubiquinol) 100 mg capsule 100 mg PO BID 10/14/24 10/14/24 Unknown History glucosamine 375 we-zkjstrebz-sgu 1 tab PO DAILY 10/14/24 10/14/24 Unknown History no1 500 mg-C 15 mg-ayush 0.5 mg tablet (Bgdnvvsishs-Xrcimxivpwf-FBQ Complex) magnesium glycinate 100 mg PO DAILY 10/14/24 10/14/24 Unknown History zinc acetate 25 mg (zinc) capsule 25 mg PO DAILY 10/14/24 10/14/24 Unknown History iron 10/18/24 10/16/24 History Exam Exam Date and Time: 10/18/24 0915 Height,Weight and Vital Signs: Height 5 ft 3 in Weight 64.41 kg Vital Signs Temperature 98.5 F 10/18/24 08:31 Pulse Rate 67 10/18/24 08:31 Respiratory Rate 18 10/18/24 08:31 Blood Pressure 123/76 10/18/24 08:31 Pulse Oximetry 97 10/18/24 08:31 Oxygen Delivery Method Room Air 10/18/24 08:31 Temperature 98.5 F 10/18/24 08:31 Pulse Rate 67 10/18/24 08:31 Respiratory Rate 18 10/18/24 08:31 Blood Pressure 123/76 10/18/24 08:31 Pulse Oximetry 97 10/18/24 08:31 Oxygen Delivery Method Room Air 10/18/24 08:31 Airway Mallampati Class: I TM Dist: >3cm Neck ROM: Full Loose/Missing/Broken Teeth: No (patient denies any loose or broken teeth) Heart: S1S2 Lungs: CTAB Assessment and Plan Assessment Anesthesia Assessment: Anesthesia Plan Discussed and Chart Reviewed Final Anesthetic Review Family History of Problems with Anesthesia: No History of Problems with Anesthesia: No NPO: Yes ASA Class: II Final Preanesthetic Review: No Changes in Pt Med Stat, Meds/Allgs Chart Reviewed, Consent Obtained/Reviewed and Anes Risks/Benef Reviewed Patient Risk: Low Procedure Risk: Low Anesthetic Plan Anesthetic Plan: MAC: and Agree w/ Assess. and Plan Disposition: Standard PACU
--- NOTE | 2024-10-18 09:44 | MHC.SHP ---
Pre-Procedural Eval Section A - 24 Hr Update-Section A only Date of Service: 10/18/24 Section B - Complete if H&P > 30 days Chief Complaint: SCREENING Details of Present Illness: see H&P no changes Relevant Family History (Specify if Yes): No Relevant Social History: None Present Medications: see Short Stay Collaborative assessment Medical History: No relevant PMH History of Previous Operations: No relevant previous surgery Allergies: Allergies Allergy/AdvReac Type Severity Reaction Status Date / Time No Known Allergies Allergy Verified 05/27/24 08:36 Review of Systems Sugical H&P ROS: Negative: Constitution, Cardiovascular, Respiratory, Neurological, Psychiatric, Hem-Onc, Allergic/Immunologic, Gastrointestinal, Genitourinary, Musculoskeletal, Integumentary, Endocrine and Eyes/Ears/Nose/Throat Exam Surgical H&P Exam: Normal: HEENT, Normal: Heart, Normal: Lungs, Normal: Extremities, Normal: Abdomen, Normal: Skin and Normal: Neurological Plan Diagnosis/Plan: Unchanged I have reviewed the history and physical and performed a pertinent physical examination on my patient. No changes have occurred unless specified. Time Spent With Patient Time: Total time managing care of this patient today ____ minutes.
[2024-10-18 10:22] VITALS: BP 90/53; PULSE 79; RESP 16; TEMP 37; O2SAT 97
[2024-10-18 10:36] VITALS: BP 107/67; PULSE 74; RESP 16; TEMP 36.6; O2SAT 97
--- NOTE | 2024-10-18 10:43 | OP_ITS ---
DATE OF SERVICE: 10/18/2024 SURGEON: Juan Antonio Figueroa MD INDICATIONS: Colon cancer screening. PREOPERATIVE DIAGNOSIS: POSTOPERATIVE DIAGNOSIS: PROCEDURE PERFORMED: Colonoscopy to the terminal ileum. ESTIMATED BLOOD LOSS: COMPLICATIONS: ANESTHESIA: Monitored anesthesia care. ASSISTANTS: SPECIMENS: DESCRIPTION OF PROCEDURE: A history and physical was performed. The risks and benefits of the procedure were explained to the patient. Informed consent was obtained. The patient was placed in the left lateral decubitus position. A digital rectal exam was performed and was found to be normal. The Olympus pediatric video colonoscope was introduced into the rectum and advanced to the cecum. The cecum was identified by transillumination, palpation, and identification of ileocecal valve. Examination was performed. The scope was removed. She tolerated the procedure well and was returned to the recovery area in stable condition. FINDINGS: The terminal ileum was examined and appeared normal. The visualized colonic mucosa was normal. The quality of the prep was good. No polyps were identified. Retroflexed examination showed some small internal hemorrhoids. IMPRESSION: Normal colonoscopy. RECOMMENDATION: 1. Follow up as needed. 2. Repeat colonoscopy is recommended in 10 years for average-risk individuals. MD PUMA Galdamez/TODD / [phone]
== END 2024-10-18 11:15 | disposition home or self-care (01) ==
PROVIDERS: PCP Internal Medicine; Visit Provider Internal Medicine Gastroenterology
PROC: 0DJD8ZZ Inspection of Lower Intestinal Tract, Via Natural or Artificial Opening Endoscopic (ICD-10-PCS; CPT 45378; principal; 2024-10-18 10:10)
DX: Z12.11 Encounter for screening for malignant neoplasm of colon (principal); K64.8 Other hemorrhoids; D64.9 Anemia, unspecified; E78.5 Hyperlipidemia, unspecified; M19.90 Unspecified osteoarthritis, unspecified site; F41.9 Anxiety disorder, unspecified; Z91.81 History of falling; Z79.899 Other long term (current) drug therapy; Z98.890 Other specified postprocedural states; F17.210 Nicotine dependence, cigarettes, uncomplicated
CPT/HCPCS: G0121; J1596; J2704

== ENCOUNTER 2024-11-23 15:06 | Outpatient (AMB) | payer MEDICARE, SELFPAY ==
--- OUTSIDE RECORDS SUMMARY | 2024-10-18 06:10 | XMS_ITS ---
Author Organization [facility] Address [address] [place] [address] Care Team Providers Care Lead Auditor Name Role Phone Nanci Kuo M.D. Primary Care Provider Juan Antonio Stewart Jr REASON FOR VISIT screening Encounters Encounter Location Date Provider Diagnosis [facility] [place] Outpatient [address] [place], [place] [id number] 10/18/2024 Juan Antonio Figueroa Jr Colon cancer screening Z12.11 Assessments Encounter Date Diagnosis (ICD Code) Assessment Notes Treatment Notes Treatment Clinical Notes Section Notes 10/18/2024 Colon cancer screening (ICD-10 - Z12.11) Plan Of Treatment No Information Progress Notes * LAURYN PENDLETON MDOB:[birth year] (69 yo F)Acc No.[id number]:10/18/2024 COLON WITH MAC Patient: LAURYN STONE Provider: Jay Figueroa MD :1955 A ge:69 Y S ex:Female Date:10/18/2024 Address:[address], [place], [place] Pcp:Nanci Kuo M.D. Subjective: * Chief Complaints: * 1 . Screening. * Medical History: Objective: * Vitals: Assessment: * Assessment: 1. C olon cancer screening - Z12.11 (Primary) Plan: * Treatment: * Procedure Codes: 4 5378 DIAGNOSTIC COLONOSCOPY * * The named appointment provid er may or may not be the originator of this progress note, and it is not deemed complete until electronically signed by the appointment provider. Sign off status: Pending * Provider: Jay Figueroa MD Date: 0 10/18/2024 Generated for Peewee johnson/Rose/Tammy on: 11/23/2024 03:26 PM EDT
[2024-11-23 15:11] VITALS: BP 120/62; PULSE 83; TEMP 37; O2SAT 96; BMI 24.1
--- NOTE | 2024-11-23 15:11 | AM.OFFWIN_ITS ---
Intake Vital Signs 11/23/24 15:11 Height 5 ft 3 in Weight 136 lb BMI 24.1 BP 120/62 Blood Pressure Location Rt brachial Position Sitting Pulse 83 Pulse Source Pulse Oximeter Temp 98.6 F Temp Source Oral Pulse Oximetry (%) 96 Oxygen Delivery Method Room Air Intake Visit Reasons: EP cough, weakness, tired Intake Note: presents with mildly productive cough, fatigue/weakness, light headache for 10 days Patient Tobacco Use Status: Former Tobacco user Allergies No Known Allergies Allergy (Verified 11/23/24 15:13) Medication List - Last Reconciled 11/23/24 by Nancy Cook PA-C ashwagandha extract 500 mg PO DAILY atorvastatin 40 mg PO DAILY coQ10 (ubiquinol) 100 mg PO BID jrttunug-ptyzi-wmv1-C-ayush-bor 584-748-72-0.5 mg (Llkqctvqhwt-Mhhpbzqhrqi-YMN Complex) 1 tab PO DAILY magnesium glycinate 100 mg PO DAILY paroxetine HCl (Paxil) 40 mg PO DAILY zinc acetate 25 mg PO DAILY Do you need a note to return to daycare/school/sports/work: No HPI HPI Comments History of Present Illness Details History - The patient is a 69-year-old female pr esenting with a cough and general malaise. - The cough began approximately 10 days ago and was initially dry. - The patient reports occasional product alex cough with some congestion. - No fever, sinus pain, or ear pain repo rted. - The patient experiences mild shortness of breath when lying down. - No history of seasonal allergies or da lizzie allergy medication use. - The patient has not been taking any sp ecific medications for the cough, aside from cough drops. Physical Exam General: Cooperative, healthy appearing, comfortable and no acute distress Orientation/consciousness: Patient oriented x3 Limitations: No limitations Head: Normal to inspection Ears: Hearing grossly normal bilaterally, external ears normal and TM's normal bilaterally Nose: Normal external nose present, Normal nares present and No nasal discharge present Face and sinus: Normal facial exam and Yes sinuses nontender Mouth: Normal oral and palatal mucosa present and moist mucous membranes Throat: Yes tonsils normal, Yes uvula midline. Posterior oropharynx erythema, no exudates Eyes: Appearance normal, both eyes and all related structures Neck: Normal visual inspection, full ROM Respiratory: Clear to auscultation bilaterally. Normal respiratory effort, able to speak in complete sentences, Actively coughing, no respiratory distress, not tachypneic, no tripod positioning and no use of accessory muscles Cardiovascular: Regular rate and rhythm. 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 Social History Housing: House Patient Tobacco Use Status: Former Tobacco user e-Cigarette/Vaping Use: Never Used service: No Current occupational status: retired Cognitive needs: No Hearing needs: Yes Vision needs: No Review of Systems Const All systems reviewed & are unremarkable except as noted in HPI and below Physical Exam Vital Signs: Last Vital Signs Temp 98.6 F 11/23/24 15:11 Pulse 83 11/23/24 15:11 BP 120/62 11/23/24 15:11 Pulse Ox 96 11/23/24 15:11 Oxygen Delivery Method Room Air 11/23/24 15:11 BMI result Body Mass Index 24.1 Assessment & Plan Assessment & Plan (1) URI, acute: Code(s): J06.9 - Acute upper respiratory infection, unspecified Plan: - VSS, pt well appearing and PE unremarkable, likely viral URI. - Prescribed tessalon pearls (benzonatate) for cough suppression, particularly at night to aid sleep. - Advised rest and use of hot tea with honey and OTC meds to address symptoms. - Recommended follow-up if symptoms persist beyond 3 weeks, with consideration for a chest x-ray if necessary. - Pt has follow up with PCP in one week already scheduled. Patient was informed and verbally consented to the use of an ambient scribe for clinic note documentation during this visit Medications: New benzonatate 200 mg PO BEDTIME PRN 10 caps 0RF cough Coding Level of Care Code Est Pt Level 3 (54641) Diagnoses URI, acute J06.9
--- OUTSIDE RECORDS SUMMARY | 2024-11-23 15:27 | XMS_ITS | Clinical Summary ---
Author Organization [facility] it Address [address] [place] [address] Care Team Providers Care Supervising Floorperson Name Role Phone Steff Stanton MD Primary Care Provider Allergies No known active allergies Medications PARoxetine (PAXIL) 20 mg tablet Take 2 tablets (40 mg total) by mouth 1 (one) time each day in the morning. 4 Active clobetasoL (TEMOVATE) 0.05 % ointment Apply small amount to vulva everyother day 4 Active glucosamine/cho ndroitin/C/Eduardo (GLUCOSAMINE 1500 COMPLEX ORAL) Take by mouth. Activ e atorvastatin (LIPITOR) 40 mg tablet Take 1 tablet (40 mg total) by mouth 1 (one) time each day. 3 Active coenzyme Q-10 50 mg capsule Take by mouth. 3 Active conjugated estrogens (Premarin) vaginal cream Place 1 gram in vagina and small amount on the vulva every other day 1 Active cholecalciferol (VITAMIN D-3) 25 mcg (1,000 unit) tablet Take 2 tablets (2,000 Units total) by mouth 1 (one) time each day. Active ascorbic acid (ILIR-C ORAL) Take by mouth. A ctive magnesium 200 mg tablet Take 1 tablet by mouth 1 (one) time each day. Active Active Problems Problem Noted Date Diagnosed Date Anxiety 06/08/2024 Depression 06/08/2024 Overview (06/08/2024): since childhood GERD (gastroesophageal reflux disease) 5 Spasmodic cough 06/08/2024 Osteopenia 08/01/2021 Overview (06/08/2024): 07/31/2021 Frax score 8.8% major fracture and 0.9% of hip fracture Palpitations 06/22/2020 Overview (06/08/2024): Last Assessment & Plan: We did discuss her palpitations. On a daily basis she is having simple PACs and PVCs. Typically she is not having any runs of these and she is asymptomatic. I have asked her to check a magnesium level. She had a normal TSH. We did discuss potential triggers for these. We did discuss treatment options. At this point she is asymptomatic with them. If they worsen or she becomes symptomatic or cannot tolerate them anymore then we will likely try low-dose beta-estelita on her. Are somewhat limited as she runs a low blood pressure. Again she will let us know if she has more. We also discussed the palpitations that woke her up at night. We did discuss that on occasion people are labeled as having anxiety or panic attacks when they actually have a underlying heart rhythm issue. Fortunately she is not had many of these. If she has another episode she will let us know. We may need to do a longer Holter monitor. She will let me know if this occurs. In regards to her syncopal event is unclear what the etiology of this was. She was feeling poorly prior to the event and it might have been due to low blood pressure as she runs a low blood pressure. If she has further episodes of these or dizziness she will let us know. I have asked her to check a lipid panel to see what her cholesterol is now that she is been on her statin for about 5 months. She will let us know how she is feeling. She will otherwise follow-up with us in a few months time for reevaluation. Syncope 06/22/2020 IFG (impaired fasting glucose) 01/04/2019 Post-nasal drip 11/27/2011 Restless legs 11/27/2011 Sleep-disordered breathing 11/27/2011 Abdominal pain 09/24/2011 Hypercholesteremia 09/24/2011 Encounters Date Type Department Care Team Description 11/17/2024 Telephone Internal Medicine - [address] [place] [address] Xiomara Childress MA Medicare Annual Wellness Visit Subsequent (AWV DUE 2024) from Last 3 Months Immunizations Name Administration Dates Next Due Influenza Quadravalent, MDCK , 0.5ml, preservative free (Flucelvax) 6mo and older 02/07/2019 Influenza Quadravalent, MDCK , 0.5ml, with preservative (Flucelvax) 6mo and older 04/14/2017 Influenza trivalent, 0.5mL ( Fluad) 65yo and older 01/20/2023,03/12/2021,03/09/2015,2012,01/27/2012,02/18/2010 Influenza trivalent, 0.5mL, preservative free (Fluarix; FluLaval; Fluzone) ages 6mo and older (Afluria) 3 years and older 02/06/2020,03/03/2018,02/12/2016 [employer] SARS-CoV-2 COVID-19, mRNA, LNP-S, preservative free 03/19/2021,09/04/2020,08/14/2020 Pneumococcal conjugate 13 va lent (Prevnar 13, PCV13) 2mo and older 01/16/2022 Pneumococcal conjugate 20 va lent (Prevnar 20, PCV 20) 2mo and older 01/20/2023 Tdap Tetanus diptheria acell ular pertussis (Boostrix; Adacel) 7yo and older 07/17/2023,06/27/2013 Zoster Live 11/21/2015 Zoster recombinant (Shingrix ) 19yo and older 05/24/2020,02/28/2020 Surgical History Surgery Date Site/Laterality Comments OTHER SURGICAL HISTORY PROCEDURE: ---- OTHER ----; COMMENT: acoustic neuroma removal OTHER SURGICAL HISTORY PROCEDURE: ---- OTHER ----; COMMENT: removal of abnormal appearing breast tissue which was normal on biopsy Medical History Medical History Date Comments Depression DX:Depression; C OMMENT: since childhood GERD (gastroesophageal reflux disease) DX:GERD (gastroesophageal reflux disease) Syncope, psychogenic childhood DX:Syncope, psychogenic; COMMENT: last 2001, avoids situation Spasmodic cough DX:Spasmodic cou gh Anxiety DX:Anxiety Hypercholesteremia 09/24/2011 DX:Hyperchole steremia Abdominal pain, unspecified site 09/24/2011 DX:Abdominal pain, unspecified site Acoustic neuroma (CMS/HCC V2 4, CMS/HCC V28) DX:Acoustic neuroma (HCC) Female stress incontinence DX:Fe male stress incontinence Atypical chest pain DX:Atypical chest pain Seasonal allergies DX:Seasonal a llergies Peptic ulcer disease DX:Peptic u lcer disease Post-nasal drip 11/27/2011 DX:Post-nasal dr ip Family History Medical History Relation Name Comments No Known Problems Brother 1 no contact No Known Problems Brother 2 no contact No Known Problems Daughter 1 No Known Problems Daughter 2 No Known Problems Daughter 3 Eulalia No Known Problems Daughter 4 Hypertension Father Other: heart disease Father Diabetes Maternal Grandmother Thyroid disease Mother Depression Sister Hyperlipidemia Sister Relation Name Status Comments Brother 1 Alive Brother 2 Alive Daughter 1 Alive healthy Daughter 2 Alive healthy Daughter 3 Eulalia Alive healthy Daughter 4 Alive healthy Father (Age 65) [place]; CABG; HTN Maternal Grandmother Mother (Age 77) dementia Sister Alive Social History Tobacco Use Types Packs/Day Years Used Date Smoking Tobacco: Former Cigarettes Q uit: 05/18/2005 Smokeless Tobacco: Never Alcohol Use Standard Drinks/Week Comments Yes 1 (1 standard drink = 0.6 oz pur e alcohol) Comments Unknown Sex and Gender Information Value Date Recorded Sex Assigned at Not on file Legal Sex Female 10:22 PM EST Gender Identity Not on file Sexual Orientation Not on file Obstetrics History Last Filed Vital Signs Vital Sign Reading Time Taken Comments Blood Pressure 112/68 10/06/2023 9:38 AM EDT Pulse 68 10/06/2023 9:38 AM EDT Temperature - - Respiratory Rate - - Oxygen Saturation - - Inhaled Oxygen Concentration - - Weight 66.7 kg (147 lb) 10/06/2023 9:38 AM EDT Height 160 cm (5' 3 ) 07/17/2023 8:39 AM EST Body Mass Index 26.04 07/17/2023 8:39 AM EST Plan of Treatment Health Maintenance Due Date Last Done Comments Breast Cancer Screening 1955 Depression Screening 04/26/2022 Falls Risk Assessment 04/26/2022 Social Influencers of Health Screening 04/26/2022 Colorectal Cancer Screening: Colonoscopy 09/14/2023 09/13/2018 COVID-19 Vaccine ( season) 2024 03/19/2021, 09/04/2020, 08/14/2020 Influenza Vaccine (#1) 2025 , 03/12/2021, 02/06/2020, Additional history exists Cholesterol Screening (Lipid Panel) 01/23/2028 01/22/2023 RSV Immunization Adult Patients (1 - 1-dose 75+ series) 10/04/2030 Osteoporosis Screening (Bone Density Screening) 08/02/2031 08/01/2021 DTaP,Tdap,and Td Vaccines (3 - Td or Tdap) 07/16/2033 07/17/2023, 06/27/2013 Hepatitis C Screening Completed 03/23/2013 Zoster Vaccines Completed 05/24/2020, 02/15, 11/21/2015 Pneumococcal Vaccine: 50+ Years Completed 01/20/2023, 01/16/2022 HIB Vaccines Aged Out No longer eligi ble based on patient's age to complete this topic HPV Vaccines Aged Out No longer eligi ble based on patient's age to complete this topic Hepatitis A Vaccines Aged Out No long er eligible based on patient's age to complete this topic Hepatitis B Vaccines Aged Out No long er eligible based on patient's age to complete this topic IPV Vaccines Aged Out No longer eligi ble based on patient's age to complete this topic MMR Vaccines Aged Out No longer eligi ble based on patient's age to complete this topic Meningococcal ACWY Vaccine Aged Out N o longer eligible based on patient's age to complete this topic Meningococcal B Vaccine Aged Out No l onger eligible based on patient's age to complete this topic RSV Immunization Patients Under 20 months Aged Out No longer eligible based on patient's age to complete this topic Varicella Vaccines Aged Out No longer eligible based on patient's age to complete this topic Procedures Procedure Name Priority Date/Time Associated Diagnosis Comments LIPID PANEL Routine 01/22/2023 DXA BONE DENSITY STUDY 1+ SITS AXIAL SKEL Routine 08/01/2021 9:39 AM EDT Encounter for screening for osteoporosis COLONOSCOPY Routine 09/13/2018 HEPATITIS C SCREENING Routine 03/23/2013 from Last 3 Months or Most Recently Relevant to Health Maintenance Results * (ABNORMAL) Lipid panel (01/22/2023) LDL/HDL Ratio 2 0 - 4 Triglycerides 82 0 - 150 mg/dL Cholesterol 215(A) 0 - 200 mg/dL HDL 92 >=40 mg/dL LDL Cholesterol 107(A) 0 - 100 mg/dL Blood Venous blood specimen / Unknown us Historical Provider MD LAB BLOOD ORDERABLES Diamond l Result * DXA BONE DENSITY STUDY 1+ SITS AXIAL SKEL (08/01/2021 9:39 AM EDT) Anatomical Region Laterality Modality Bone Densitometr y 03/12/2021 8:53 AM EDT Narrative 08/01/2021 4:16 PM EDT BONE DENSITY Lumbar Spine T-score is -2.0 (SD relative to 20-29 y/o adult) Z-score is -0.2 (SD relative to age matched peers) This is consistent with osteopenia by criteria defined by the WHO. Left Hip T-score is -1.4 Z-score is +0.1 This is consistent with osteopenia by criteria defined by the WHO. Impression: Based on the World Health Organization criteria, Catherine Phillip should be classified as having osteopenia. This patient has a 8.8% risk of major osteoporotic fracture and a 0.9% risk of hip fracture over the next 10 years. (World Health Organization Fracture Risk Assessment) The [facility] Department of Internal Medicine recommends using National Osteoporosis Foundation (NOF) guidelines in treatment decisions related to osteoporosis. NOF guidelines suggest considering treatment for postmenopausal women and men aged 50 or older presenting with the following: History of hip or vertebral fracture. T-score less than or equal to -2.5 (DXA) at the femoral neck, total hip, or spine, after appropriate evaluation to exclude secondary causes. Low bone mass (T-score between -1.0 and -2.5 at the femoral neck or spine) AND a 10-year probability of a hip fracture greater than or equal to 3% OR a 10-year probability of a major osteoporosis-related fracture greater than or equal to 20% based on the [place]-adapted WHO algorithm Please note that all treatment decisions require clinical judgment and consideration of individual patient factors, including patient preferences, co-morbidities, previous drug use, risk factors not captured in the FRAX model (e.g., frailty, falls, vitamin D deficiency, increased bone turnover, interval significant decline in bone density) and possible under- or over-estimation of fracture risk by FRAX. Procedure Note Pinky Byrd MD - 05/06/2022 BONE DENSITY Lumbar Spine T-score is -2.0 (SD relative to 20-29 y/o adult) Z-score is -0.2 (SD relative to age matched peers) This is consistent with osteopenia by criteria defined by the WHO. Left Hip T-score is -1.4 Z-score is +0.1 This is consistent with osteopenia by criteria defined by the WHO. Impression: Based on the World Health Organization criteria, Catherine Phillip should beclassified as having osteopenia. This patient has a 8.8% risk of majorosteoporotic fracture and a 0.9% risk of hip fracture over the next 10years. (World Health Organization Fracture Risk Assessment) [facility] Department of Internal Medicine recommendsusing National Osteoporosis Foundation (NOF) guidelines in treatmentdecisions related to osteoporosis. NOF guidelines suggest consideringtreatment for postmenopausal women and men aged 50 or older presentingwith the following: History of hip or vertebral fracture. T-score less than or equal to -2.5 (DXA) at the femoral neck, total hip,or spine, after appropriate evaluation to exclude secondary causes. Low bone mass (T-score between -1.0 and -2.5 at the femoral neck or spine)AND a 10-year probability of a hip fracture greater than or equal to 3% ORa 10-year probability of a major osteoporosis-related fracture greaterthan or equal to 20% based on the [place]-adapted WHO algorithm Please note that all treatment decisions require clinical judgment andconsideration of individual patient factors, including patientpreferences, co-morbidities, previous drug use, risk factors not capturedin the FRAX model (e.g., frailty, falls, vitamin D deficiency, increasedbone turnover, interval significant decline in bone density) and possibleunder- or over-estimation of fracture risk by FRAX. Meghan HICKEY IMG DXA PROCEDURES Final R esult * Colonoscopy (09/13/2018) [facility] Colonoscopy No Interpretation , Abstracted Anatomical Region Laterality Modality Other Historical Provider HEALTH MAINTENANCE Final Result * Hepatitis C Screening (03/23/2013) [facility] Hepatitis C Screening Abstracted Historical Provider HEALTH MAINTENANCE Final Result from Last 3 Months or Most Recently Relevant to Health Maintenance Care Teams Supervising Floorperson Relationship Specialty Start Date End Date Steff Stanton MD [address] [place] [id number] PCP - General Internal Medicine 09/16/21
== END 2024-11-23 15:35 | disposition home or self-care (01) ==
PROVIDERS: PCP Internal Medicine; Visit Provider Physician Assistant
DX: J06.9 Acute upper respiratory infection, unspecified (principal)

== ENCOUNTER → 2024-11-23 15:06 | Outpatient (BNVA) | payer MEDICARE, SELFPAY | PROVIDERS: PCP Internal Medicine; Visit Provider Physician Assistant | DX: J06.9 Acute upper respiratory infection, unspecified (principal) | CPT/HCPCS: 99212 ==

== ENCOUNTER 2024-11-29 11:47 | Outpatient (AMB) | payer MEDICARE, SELFPAY ==
--- OUTSIDE RECORDS SUMMARY | 2024-10-18 06:10 | XMS_ITS ---
Author Organization [facility] Address [address] [place] [address] Care Team Providers Care Wearing Apparel Shaker Name Role Phone Nanci Kuo M.D. Primary Care Provider Juan Antonio Stewart Jr REASON FOR VISIT screening Encounters Encounter Location Date Provider Diagnosis [facility] [place] Outpatient [address] [place], [place] [phone] 10/18/2024 Juan Antonio Figueroa Jr Colon cancer screening Z12.11 Assessments Encounter Date Diagnosis (ICD Code) Assessment Notes Treatment Notes Treatment Clinical Notes Section Notes 10/18/2024 Colon cancer screening (ICD-10 - Z12.11) Plan Of Treatment No Information Progress Notes * LAURYN PENDLETON MDOB:[birth year] (69 yo F)Acc No.[id number]:10/18/2024 COLON WITH MAC Patient: LAURYN STONE Provider: Jay Figueroa MD :1955 A ge:69 Y S ex:Female Date:10/18/2024 Address:[address], [place], [place] Pcp:Nanci Kuo M.D. Subjective: * Chief Complaints: [...] 10/18/2024 Generated for Peewee johnson/Rose/Tammy on: 0 11/29/2024 01:07 PM EDT
--- NOTE | 2024-11-29 11:53 | A.OFFPC_ITS ---
Vital Signs 11/29/24 11:55 Height 5 ft 3 in Weight 137 lb BMI 24.3 BP 96/64 Blood Pressure Location Rt brachial Position Sitting Respiration 12 Pulse 78 Pulse Source Pulse Oximeter Temp 98.7 F Temp Source Oral Pulse Oximetry (%) 96 Oxygen Delivery Method Room Air Intake Visit Reasons: follow up Intake Note: Follow up [employer] Required: No Allergies No Known Allergies Allergy (Verified 11/29/24 11:54) Tobacco use date assessed: 11/29/24 Fall risk assessment: No Falls in past year Dental Screening Dental Screen Date: 11/29/24 Did you have a dental visit in the last 12 months?: Yes Did you have a dental problem in the last 6 months where you did not have access to dental care?: No Was dental information given to patient?: Patient has dentist HPI HPI Comments History of Present Illness Details The patient is a 69 year old female with a past medical history of hyperlipidemia, depression presenting for follow up BH: Stable on paxil. She continues to have low motivation. She is chronically tired. Recent URI almost resolved. Tried wellbutrin. Tolerated but was not helpful. She has had 2 sleep studies in the past CV: On atorvastatin Preventive: Mammo 06/2024 Colonoscopy is UTD ROS see HPI PHYSICAL EXAM: GENERAL: Alert and oriented x 3. NAD EYES: EOMI. Anicteric. HENT: Moist mucous membranes. No scleral icterus. No cervical lymphadenopathy. LUNGS: Clear to auscultation bilaterally. CARDIOVASCULAR: Regular rate and rhythm. No murmur. No JVD. ABDOMEN: Soft, non-tender +bs EXTREMITIES: No edema. Non-tender. SKIN: No rashes or lesions. Warm. NEUROLOGIC: No focal neurological deficits. CN II-XII grossly intact PSYCHIATRIC: Cooperative. Appropriate mood and affect [facility] Medical History Anemia Anxiety and depression Arthritis High cholesterol Surgical History H/O colonoscopy History of Matos colposuspension Status post excision of acoustic neuroma Family History Father Cardiovascular disease Maternal Grandmother Diabetes Family/Other No problems noted. Social History Housing: House Patient Tobacco Use Status: Former Tobacco user e-Cigarette/Vaping Use: Never Used service: No Current occupational status: retired Cognitive needs: No Hearing needs: Yes Vision needs: No Questionnaire Thrive Questionnaire Date Thrive assessed: 05/26/24 I am a: Patient What is your living situation today?: I have a steady place to live Within the past 12 months, did the food you bought not last and you didn't have the money to get more?: Never true Within the past 12 months, did you worry whether your food would run out before you got money to buy more?: Never true Do you have trouble paying for medicines?: No Do you have trouble getting transportation to medical appointments?: No Do you have trouble paying your heating and electricity bill?: No Do you have trouble taking care of your child, family member or friend?: No Do you have trouble with day-to-day activities such as bathing, preparing meals, shopping, managing finances, etc.?: No Are you currently unemployed and looking for a job?: No Are you interested in more education?: No Please select the resources that you would like help with: None Currently or been in a relationship where the following occur: I choose not to answer THRIVE Score: 0 AUDIT C Alcohol Use Questionnaire (AUDIT-C) 1. How often do you have a drink containing alcohol?: Monthly or less 2. How many drinks containing alcohol do you have on a typical day when you are drinking?: 1 or 2 3. How often do you have six or more drinks on one occasion?: Never Total Score: 1 REE-7 AMB Questionnaire REE-7 Date REE - 7 assessed: 05/27/24 Source: Developed by Drs. Raheel Chang, Myriam Washington, Julian Traore and colleagues, with an educational alaina from [employer]. Physical exam (Primary Care) Vital Signs: Last Vital Signs Temp 98.7 F 11/29/24 11:55 Pulse 78 11/29/24 11:55 Resp 12 11/29/24 11:55 BP 96/64 11/29/24 11:55 Pulse Ox 96 11/29/24 11:55 Oxygen Delivery Method Room Air 11/29/24 11:55 BMI result Body Mass Index 24.3 Tobacco/Smoking Status: Tobacco use Status Tobacco use date assessed 11/29/24 11/29/24 11:57 Patient Tobacco Use Status Former Tobacco user 11/29/24 11:57 e-Cigarette/Vaping Use Never Used 11/29/24 11:57 Thrive Assessment: Date of Thrive Assessment Date Thrive assessed 05/26/24 11/29/24 11:57 Currently or been in a relationship where the following occur: I choose not to answer Coding Level of Care Code Est Pt Level 4 (64752) Diagnoses MDD (major depressive disorder), recurrent, in partial remission F33.41 High cholesterol E78.00 Chronic fatigue R53.82 Fatigue type: chronic, unspecified Assessment & Plan Assessment & Plan (1) MDD (major depressive disorder), recurrent, in partial remission: Code(s): F33.41 - Major depressive disorder, recurrent, in partial remission Category: Medical (2) High cholesterol: Code(s): E78.00 - Pure hypercholesterolemia, unspecified Category: Medical (3) Fatigue: Code(s): R53.83 - Other fatigue Category: Medical Qualifiers: Fatigue type: chronic, unspecified Qualified Code(s): R53.82 - Chronic fatigue, unspecified Plan MDD-depression is stable. Chronic fatigue-trial adderall. Discussed potential SEs Labs ordered Hyperlipidemia-check lipids Orders: Orders TSH reflex Free T4 Today D72.820 - Lymphocytosis (symptomatic), E78.00 - Pure hypercholesterolemia, unspecified, R53.82 - Chronic fatigue, unspecified AMB [place] Screen Today D72.820 - Lymphocytosis (symptomatic), E78.00 - Pure hypercholesterolemia, unspecified, R53.82 - Chronic fatigue, unspecified, Z13.9 - Encounter for screening, unspecified Complete Blood Count Auto Diff Today D72.820 - Lymphocytosis (symptomatic), E 78.00 - Pure hypercholesterolemia, unspecified, R53.82 - Chronic fatigue, unspecified Pathologist Review - CBC Today D72.820 - Lymphocytosis (symptomatic), E78.00 - Pure hypercholesterolemia, unspecified, R53.82 - Chronic fatigue, unspecified Vitamin D 25-OH (D2 and D3) Today D72.820 - Lymphocytosis (symptomatic), E78.00 - Pure hypercholesterolemia, unspecified, R53.82 - Chronic fatigue, unspecified Medications: New Adderall XR 5 mg (dextroamphetamine-amphetamine) Partial Fill upon patient request. 5 mg PO DAILY 30 caps 0RF NS R41.840 - Attention and concentration deficit
[2024-11-29 11:55] VITALS: BP 96/64; PULSE 78; RESP 12; TEMP 37.1; O2SAT 96; BMI 24.3
--- OUTSIDE RECORDS SUMMARY | 2024-11-29 13:08 | XMS_ITS | Clinical Summary ---
Author Organization [facility] it Address [address] [place] [address] Care Team Providers Care Surgery Consultant Name Role Phone Steff Stanton MD Primary [...] Telephone Internal Medicine - [address] [place] [address] Xiomara Childress MA Medicare Annual [...] older (Afluria) 3 years and older 02/06/2020,03/03/2018,02/12/2016 [employer] SARS-CoV-2 COVID-19, mRNA, LNP-S, preservative free 03/19/2021,09/04/2020,08/14/2020 [...] Daughter 4 Alive healthy Father (Age 65) [place]; CABG; HTN Maternal Grandmother Mother (Age 77) [...] (World Health Organization Fracture Risk Assessment) [facility] Department of Internal Medicine recommends using [...] (World Health Organization Fracture Risk Assessment) [facility] Department of Internal Medicine recommendsusing National [...] PROCEDURES Final R esult * Colonoscopy (09/13/2018) [facility] Colonoscopy No Interpretation , Abstracted Anatomical Region Laterality Modality Other Historical Provider HEALTH MAINTENANCE Final Result * Hepatitis C Screening (03/23/2013) [facility] Hepatitis C Screening Abstracted Historical Provider HEALTH MAINTENANCE Final Result from Last 3 Months or Most Recently Relevant to Health Maintenance Care Teams Surgery Consultant Relationship Specialty Start Date End Date Steff Stanton MD [address] [place] [id number] PCP - General Internal Medicine 09/16/21
== END 2024-11-29 14:24 | disposition home or self-care (01) ==
LOC: HO.HMCFM 11:48
PROVIDERS: PCP Internal Medicine; Visit Provider Internal Medicine
DX: F33.41 Major depressive disorder, recurrent, in partial remission (principal); E78.00 Pure hypercholesterolemia, unspecified; R53.82 Chronic fatigue, unspecified

== ENCOUNTER → 2024-11-29 11:47 | Outpatient (BNVA) | payer MEDICARE, SELFPAY | PROVIDERS: PCP Internal Medicine; Visit Provider Internal Medicine | DX: F33.41 Major depressive disorder, recurrent, in partial remission (principal); E78.00 Pure hypercholesterolemia, unspecified; R53.82 Chronic fatigue, unspecified; Z79.899 Other long term (current) drug therapy | CPT/HCPCS: 99212 ==

== ENCOUNTER 2024-12-13 08:37 | Outpatient (REF) | payer MEDICARE, SELFPAY ==
--- OUTSIDE RECORDS SUMMARY | 2024-10-18 06:10 | XMS_ITS ---
Author Organization [facility] Address [address] [place] [address] Care Team Providers Care Director Museum Or Zoo Name Role Phone Nanci Kuo M.D. Primary Care Provider Juan Antonio Stewart Jr REASON FOR VISIT screening Encounters Encounter Location Date Provider Diagnosis [facility] [place] Outpatient [address] [place], [place] [phone] 10/18/2024 Juan Antonio Figueroa Jr Colon cancer screening Z12.11 Assessments Encounter Date Diagnosis (ICD Code) Assessment Notes Treatment Notes Treatment Clinical Notes Section Notes 10/18/2024 Colon cancer screening (ICD-10 - Z12.11) Plan Of Treatment No Information Progress Notes * LAURYN PENDLETON MDOB:[birth year] (69 yo F)Acc No.[id number]:10/18/2024 COLON WITH MAC Patient: LAURYN STONE Provider: Jay Figueroa MD :1955 A ge:69 Y S ex:Female Date:10/18/2024 Address:[address], [place], [place] Pcp:Nanci Kuo M.D. Subjective: * Chief Complaints: [...] 0 10/18/2024 Generated for Peewee johnson/Rose/Tammy on: 0 12/13/2024 08:55 AM EDT
--- OUTSIDE RECORDS SUMMARY | 2024-12-13 08:55 | XMS_ITS ---
Author Name [facility] Organization Unknown Care Team Organization Name Specialty Phone Email Start Date End Da te [facility] Termed, PROVIDER Primary Care 03/25/202212/16
--- OUTSIDE RECORDS SUMMARY | 2024-12-13 08:56 | XMS_ITS | Clinical Summary ---
Author Organization [facility] it Address [address] [place] [address] Care Team Providers Care Student Education Specialist Name Role Phone Steff Stnaton MD Primary Care Provider Allergies No known [...] Telephone Internal Medicine - [address] [place] [address] Xiomara Childress MA Medicare Annual [...] older (Afluria) 3 years and older 02/06/2020,03/03/2018,02/12/2016 [email or web address] SARS-CoV-2 COVID-19, mRNA, LNP-S, preservative free 03/19/2021,09/04/2020,08/14/2020 [...] Last Done Comments Breast Cancer Screening 1955 Falls Risk Assessment 04/26/2022 Social Influencers of Health Screening 04/26/2022 Colorectal Cancer Screening: Colonoscopy 09/14/2023 09/13/2018 COVID-19 Vaccine () 01/17/2024 03/19/2021, 09/04/2020, 08/14/2020 Depression Screening 05/18/2024 Influenza Vaccine (#1) 2025 , 03/12/2021, 02/06/2020, [...] (World Health Organization Fracture Risk Assessment) [facility] Department of Internal Medicine recommends using National [...] (World Health Organization Fracture Risk Assessment) [facility] Department of Internal Medicine recommendsusing National Osteoporosis [...] PROCEDURES Final R esult * Colonoscopy (09/13/2018) [facility] Colonoscopy No Interpretation , Abstracted Anatomical Region Laterality Modality Other Historical Provider HEALTH MAINTENANCE Final Result * Hepatitis C Screening (03/23/2013) [facility] Hepatitis C Screening Abstracted Historical Provider HEALTH MAINTENANCE Final Result from Last 3 Months or Most Recently Relevant to Health Maintenance Care Teams Student Education Specialist Relationship Specialty Start Date End Date Steff Stanton MD [address] [place] [id number] PCP - General Internal Medicine 09/16/21
[2024-12-13 11:16] LABS: MANUAL DIFF FLAG NO
[2024-12-13 11:30] LABS: Hematocrit 37.3 % (37.0-47.0); Hemoglobin 12.6 g/dl (12.0-16.0); Imm Gran Abs Auto 0.01 X10*3/uL (0.00-0.03); Imm Gran Pct Auto 0.2 % (0.0-0.4); Lymphocytes Absolute Auto 2.3 X10*3/uL (1.2-4.9); Mean Corpuscular HGB Conc 33.8 g/dl (31.0-35.0); Mean Corpuscular Hemoglobin 31.7 pg (27.0-33.0); Mean Corpuscular Volume 93.7 fL (80.0-98.0); NRBC Abs Auto 0.000 X10*3/uL (0.0-0.012); NRBC Pct Auto 0.0 /100WBC (0.0-0.2); Platelet Count 194 X10*3/uL (160-400); Red Blood Count 3.98 X10*6/uL (4.20-5.50); White Blood Count 4.8 X10*3/uL (4.8-10.8)
[2024-12-17 16:38] LABS: Vitamin D 25-OH, D2 <4 ng/mL; Vitamin D 25-OH, D3 64 ng/mL; Vitamin D 25-OH, Total 64 ng/mL (30-100)
== END 2024-12-13 08:38 | disposition home or self-care (01) ==
LOC: HO.WFDLDS 08:37
PROVIDERS: Visit Provider Internal Medicine
DX: D72.820 Lymphocytosis (symptomatic) (principal); E78.00 Pure hypercholesterolemia, unspecified; R53.82 Chronic fatigue, unspecified
CPT/HCPCS: 82306; 84443; 85025

== ENCOUNTER 2025-05-05 12:42 | Outpatient (REF) | payer MEDICARE, SELFPAY ==
--- OUTSIDE RECORDS SUMMARY | 2024-10-18 05:10 | XMS_ITS ---
Author Organization [facility] Address [address] [place] [address] Care Team Providers Care Thermometer Tester Name Role Phone Shiela Rodriguez, Nanci Primary Care Provider Juan Antonio Stewart Jr [phone] REASON FOR VISIT screening Encounters Encounter Location Date Provider Diagnosis [facility] [place] [facility] [address] [place], [place] [id number] 10/18/2024 Juan Antonio Figueroa Jr Colon cancer screening Z12.11 Assessments Encounter Date Diagnosis (ICD Code) Assessment Notes Treatment Notes Treatment Clinical Notes Section Notes 10/18/2024 Colon cancer screening (ICD-10 - Z12.11) Plan Of Treatment No Information Progress Notes * LAURYN PENDLETON MDOB:[birth year] (69 yo F)Acc No.[id number]:10/18/2024 COLON WITH MAC Patient: LAURYN STONE Provider: Jay Figueroa MD :1955 A ge:69 Y S ex:Female Date:10/18/2024 Address:[address], [place], [place] Pcp:Nanci Kuo M.D. Subjective: * Chief Complaints: * S creening Assessment: * Assessment: 1. C olon cancer screening - Z12.11 (Primary) Plan: * Procedure Codes: 4 5378 DIAGNOSTIC COLONOSCOPY Billing Information: * Procedure Codes: 32791 DIAGNOSTIC COLONOSCOPY. * The named appointment provid er may or may not be the originator of this progress note, and it is not deemed complete until electronically signed by the appointment provider. Sign off status: Pending * Provider: Jay Figueroa MD Date: 0 10/18/2024 Generated for Peewee johnson/Rose/Tammy on: 1 07/06/2024 02:32 PM EST
--- NOTE | ~2025-05-05 | MM_ITS ---
EXAMINATION: DXA BONE DENSITY AXIAL HISTORY: M95.1 TECHNIQUE: [employer] Dual energy absorptiometry (DEXA) of the lumbar spine, total left hip, and femoral neck was performed. COMPARISON: Comparison is made with the prior examination dated 03/17/2008. FINDINGS: The bone mineral density of the lumbar spine is 0.902 g/cm2, corresponding to a T-score of -2.3, and a Z-score of -0.6. This is indicative of osteopenia. This represents a BMD change of -6.6% compared to the prior exam. This is statistically significant. The bone mineral density of the left total hip is 0.877 g/cm2, corresponding to a T-score of -1.0, and a Z-score of 0.4. This is indicative of normal bone mineral density. This represents a BMD change of -9.6% compared to the prior exam. This is statistically significant. The bone mineral density of the left femoral neck is 0.797 g/cm2, corresponding to a T-score of -1.7, and a Z-score of -0.1. This is indicative of osteopenia. This represents a BMD change of -8.3% compared to the prior exam. FRACTURE RISK: The FRAX index suggests a ten year probability of major osteoporotic fracture of 11.2%, and of hip fracture 2.9%. MM/XR DEXA axial skeleton IMPRESSION: Based on bone mineral density, and according to World Health Organization (WHO) criteria, the diagnosis is consistent with osteopenia. Statistically, 68% of repeat scans fall within 1 SD (+/- 0.010 g/cm2 for AP spine L1-L4) and 1 SD (+/- 0.012 g/cm2 for femur total) FRAX is a trademark of the [employer] Met[employer], a World Health Organization (WHO) Collaborating Center. Electronically signed by: Raheel Davidson MD 05/05/2025 02:02 PM [facility] [place]
--- OUTSIDE RECORDS SUMMARY | 2025-05-05 14:32 | XMS_ITS | Patient Health Record ---
Author Organization [facility] Address [address] [place] [address] Care Team Providers Care Information Delivery Analyst Name Role Phone Nanci Kuo M.D. Primary Care Provider Unavail diane Figueroa Jr Juan Antonio Unavailable [phone] Allergies No Known Allergies Reason For Referral No Information Medications Medication SIG (Take, Route, Frequency, Duration) Notes Start Date End Date Status Zinc 30 MG Tablet 1 tablet Orally Once a day; Duration: 30 day(s) 09/21/2024 Active Ashwagandha Gummies 500 MG Tablet Chewable as directed Orally 09/21/2024 Active Icvcth-Xqazlwhsa-SAC Complex - Tablet as directed Orally 09/21/2024 Activ e Co Q 10 10 MG Capsule as directed Orally Active Atorvastatin Calcium 40 MG Tablet 1 tablet Orally Once a day; Duration: 30 day(s) 09/21/2024 Active Magnesium Glycinate 100 MG Capsule as directed Orally 09/21/2024 Active Paxil 40 MG Tablet 1 tablet in the morn ing Orally Once a day; Duration: 30 day(s) 09/21/2024 Active Immunizations Vaccine Route Administration Date Status Comme nts Influenza Unknown 01/26/2024 Administered Social History Tobacco Use: Social History Observation Description Date Details (start date - stop date) Current Smoker NA - NA Social History Drugs/Alcohol: Social Info Question Answer Notes Drugs Have you used drugs other than those for medical reasons in the past 12 months? Yes Drug/Alcohol: Social Info Question Answer Notes AUDIT-C (Standard) Did you have a drink containing alcohol in the past year? Yes How often did you have a drink containing alcohol in the past year? 2 to 3 times a week (3 points) How many drinks did you have on a typical day when you were drinking in the past year? 1 or 2 drinks (0 point) How often did you have six or more drinks on one occasion in the past year? Never (0 point) Points 3 Interpretation Positive Tobacco Use: Social Info Question Answer Notes Tobacco Control (Standard) Tobacco use: Current smoker Additional Details Category Social Info Options Details Miscellaneous: Marital status: Occupation: retired Problems Problem Type SNOMED Code ICD Code Onset Dates Problem Status W/U Status Risk Notes Problem Colon cancer screening (703079829) Colon cancer screening (Z12.11) Active confirmed Problem Pre-surgery evaluation (373696498) Other specified pre-operative examination (Z01.818) Active confirmed Vital Signs Temperature 98.0 degrees Fahrenheit 09/21/2024 Blood pressure diastolic 01 mm Hg 09/21/2024 Height 63 in 09/21/2024 Blood pressure systolic 001 mm Hg 09/21/2024 Weight 142 lbs 09/21/2024 BMI 25.15 kg/m2 09/21/2024 Encounters Encounter Location Date Provider Diagnosis [facility] [place] Outpatient [address] [place] [phone] 10/18/2024 Juan Antonio Figueroa Jr Colon cancer screening Z12.11 [facility] [address] [place] [phone] 09/21/2024 Juan Antonio Figueroa Jr Colon cancer screening Z12.11 and Other specified pre-operative examination Z01.818 [facility] [address] [place] [address] Drive [address] [place] [phone] 09/21/2024 Juan Antonio Figueroa Jr [facility] [address] [place] [phone] 09/21/2024 Juan Antonio Figueroa Jr Assessments Encounter Date Diagnosis (ICD Code) Assessment Notes Treatment Notes Treatment Clinical Notes Section Notes 10/18/2024 Colon cancer screening (ICD-10 - Z12.11) 09/21/2024 Colon cancer screening (ICD-10 - Z12.11) [...] Test Test Name Order Date COLONOSCOPY 09/21/2024 Insurance Providers Payer Name Payer Address Payer Phone Subscriber Number Group Number Insured Name Patient Relationship to Insured Coverage Start Date Coverage End Date [employer] MEDI COMP (REFERR AL REQUIRE D) [address] [address] [place] [address] [id number] LAURYN PENDLETON Self - patient is the insured Medical (General) History Medical History History ICD Code Colonoscopy 09/03, no polyps, redundant and tortuous colon, 5-year follow-up due to limitations of the prep Arthritis anxiety/depression Hyperlipidemia Anemia Surgical History Surgery Date(Month/Year) bladder lift acoustic neuroma removal
--- OUTSIDE RECORDS SUMMARY | 2025-05-05 14:32 | XMS_ITS | Clinical Summary ---
Author Organization [facility] it Address [address] [place] [address] Care Team Providers Care Patient Registration Representative Name Role Phone Steff Stanton MD Primary [...] breathing 11/27/2011 Abdominal pain 09/24/2011 Hypercholesteremia 09/24/2011 Immunizations Immunization Administration Dates Next Due Influenza Quadravalent, MDCK , 0.5ml, preservative free (Flucelvax) 6mo and older 02/07/2019 Influenza Quadravalent, MDCK , 0.5ml, with preservative (Flucelvax) 6mo and older 04/14/2017 Influenza trivalent, 0.5mL ( Fluad) 65yo and older 01/20/2023,03/12/2021,03/09/2015,2012,01/27/2012,02/18/2010 Influenza trivalent, 0.5mL, preservative free (Fluarix; FluLaval; Fluzone) ages 6mo and older (Afluria) 3 years and older 02/06/2020,03/03/2018,02/12/2016 Pfizer SARS-CoV-2 COVID-19, mRNA, LNP-S, preservative free 03/19/2021,09/04/2020,08/14/2020 [...] Daughter 4 Alive healthy Father (Age 65) [place]; CABG; HTN Maternal Grandmother Mother (Age 77) dementia Sister Alive Social History Tobacco Use Types Packs/Day Years Used Date Smoking Tobacco: Former Cigarettes 0.3 Q uit: 05/18/2005 Smokeless Tobacco: Never Alcohol Use Standard Drinks/Week Comments Yes 1 (1 standard drink = 0.6 oz pur e alcohol) Comments Unknown Sex and Gender Information Value Date Recorded Sex Assigned at Not on file Legal Sex Female 10:22 PM EST Gender Identity Not on file Sexual Orientation Not on file Last Filed Vital Signs Vital Sign Reading [...] 04/26/2022 Colorectal Cancer Screening: Colonoscopy 09/14/2023 09/13/2018 Depression Screening 05/18/2024 COVID-19 Vaccine ( season) 2025 03/19/2021, 09/04/2020, 08/14/2020 Influenza Vaccine (#1) 2025 [...] blood specimen / Unknown us Historical Provider LAB BLOOD ORDERABLES [facility] Result * DXA BONE DENSITY STUDY 1+ [...] (World Health Organization Fracture Risk Assessment) [facility] Department of Internal Medicine recommends using National [...] (World Health Organization Fracture Risk Assessment) [facility] Department of Internal Medicine recommendsusing National Osteoporosis [...] or over-estimation of fracture risk by FRAX. us Meghan HICKEY IMG DXA PROCEDURES Final R esult * Colonoscopy (09/13/2018) [facility] Colonoscopy No Interpretation , Abstracted Anatomical Region Laterality Modality Other us Historical Provider HEALTH MAINTENANCE Final Result * Hepatitis C Screening (03/23/2013) Hepatitis C Screening Abstracted us Historical Provider HEALTH MAINTENANCE Final Result from Last 3 Months or Most Recently Relevant to Health Maintenance Care Teams Patient Registration Representative Relationship Specialty Start Date End Date Steff Stanton MD [address] [place] [address] PCP - General Internal Medicine 09/16/21
== END 2025-05-05 12:43 | disposition home or self-care (01) ==
LOC: HO.MAMMO 12:42
PROVIDERS: PCP Internal Medicine; Visit Provider Obstetrics & Gynecology
DX: M85.88 Other specified disorders of bone density and structure, other site (principal); M85.852 Other specified disorders of bone density and structure, left thigh; N95.1 Menopausal and female climacteric states
CPT/HCPCS: 77080

== ENCOUNTER → 2025-05-05 13:00 | Outpatient (BNV) | payer MEDICARE, SELFPAY | PROVIDERS: PCP Internal Medicine; Visit Provider Radiology Diagnostic Radiology | DX: E28.39 Other primary ovarian failure (principal) | CPT/HCPCS: 77080 ==